=== PATIENT | female | born 1955 | race Caucasian/White ===

== ENCOUNTER 2017-05-01 08:48 | Outpatient (CLI) | payer MEDICARE, MEDICAID ==
--- NOTE | 2017-05-01 12:20 | CT ---
CT THORAX WITH IV CONTRAST: Date: 05/01/17 HISTORY: Small cell B cell lymphoma. Patient has CHF and liver cirrhosis. COMPARISON: None available. FINDINGS: There are postsurgical changes related to CABG. Vascular calcifications are seen in the coronary miladis major, as well as involving the thoracic aorta. Thoracic aorta is normal in caliber. There are no enlarged lymph nodes seen within the axillary, hilar, or mediastinal locations by CT siz e criteria. There are scattered increased interstitial densities seen scattered throughout the lungs bilaterally, which are most likely attributable to chronic interstitial lung changes. No discrete pulmonary nodul e, mass, or pleural effusion is identified. Upper abdomen demonstrates a mild nodular peripheral contour of the liver suggesting cirrhosis which correlates with patient's clinical history. Post cholecystectomy changes are noted. The liver is at t he upper limits of normal in size and AP dimensions measuring 13.0 cm. Vascular calcifications are seen in the abdominal aorta. Degenerative changes are noted in the spine. IMPRESSION: 1. Evidence of chronic interstitial lung changes. While superimposed acute process could not be excl uded, findings are most likely attributable to chronic changes. 2. No evidence of lymphadenopathy. 3. Vascular calcifications in the coronary arteries, as well as the thoracic and abdominal aorta. Po stsurgical changes related to CABG are noted. 4. Evidence of cirrhosis with spleen at the upper limits of normal in size. 5. Cholecystectomy. POS: [facility]
[2017-05-01] MEDS ORDERED: Iopamidol 370 76% 100 ML VIAL ONE (16:56)
== END 2017-05-01 08:49 | disposition home or self-care (01) ==
LOC: CT 08:48
PROVIDERS: ATTEND Internal Medicine Medical Oncology
DX: C83.02 Small cell B-cell lymphoma, intrathoracic lymph nodes (principal); J84.9 Interstitial pulmonary disease, unspecified; I25.10 Atherosclerotic heart disease of native coronary artery without angina pectoris; I70.0 Atherosclerosis of aorta; K74.60 Unspecified cirrhosis of liver; Z90.49 Acquired absence of other specified parts of digestive tract; Z95.1 Presence of aortocoronary bypass graft
CPT/HCPCS: 71260; 82565

== ENCOUNTER 2017-11-19 10:44 | Outpatient (CLI) | payer MEDICARE, MEDICAID | END 2017-11-19 10:45 | disposition home or self-care (01) | LOC: BICULT 10:44 | PROVIDERS: ATTEND Family Medicine | DX: K74.60 Unspecified cirrhosis of liver (principal); Z90.49 Acquired absence of other specified parts of digestive tract | CPT/HCPCS: 76705 ==

== ENCOUNTER 2018-05-08 20:35 | Emergency (ER) | payer MEDICARE, MEDICAID ==
[~2018-05-08 20:35] MED LIST: ISOVUE-370 76%-LOCM 1 ML ONE
[2018-05-08] MEDS ORDERED: Ondansetron PF 4 MG/2 ML Vial ONE (20:43)
[2018-05-08] MEDS ORDERED: Nitroglycerin 0.4 MG TAB 1 EACH ONE (21:00)
[2018-05-08] MEDS ORDERED: Aspirin Chewable 81 MG TAB ONE (21:00)
--- NOTE | 2018-05-08 21:10 | RAD ---
CHEST ONE VIEW 05/08/18 HISTORY: Chest pain. COMPARISON: Radiograph 07/01/17. FINDINGS: The heart size is enlarged. Mild pulmonary venous congestion. Early edema. No pneumothorax. IMPRESSION: Cardiomegaly and mild pulmonary edema. POS: [facility]
[2018-05-08 21:31] LABS: #Basophils 0.1 thou/uL (0.0-0.2); #Eosinphils 0.3 thou/uL (0.0-0.7); #Monocytes 0.6 thou/uL (0.11-0.59); #Neutrophils 4.9 thou/uL (1.40-6.50); %Basophils 0.9 % (0.0-1.0); %Eosinophils 2.7 % (0.0-10.0); %Lymphocytes 40.5 % (21.0-51.0); %Monocytes 5.8 % (0.0-10.0); %Neutrophils 50.1 % (42.0-75.0); Mean Corpuscular HGB CONC 33.1 g/dL (32.0-36.0); Mean Corpuscular Volume 90.6 fL (78.0-98.0); Mean Platelet Volume 7.6 fL (7.4-10.4); Platelet Count 227 thou/uL (130-400); RBC Distribution Width 12.7 % (11.5-14.5); Red Blood Cell (RBC) Count 5.01 mill/uL (4.20-5.40); White Blood Cell (WBC) Count 9.8 thou/uL (4.8-10.8)
[2018-05-08 21:38] LABS: ALT (SGPT) 14 U/L (8-55); AST (SGOT) 17 U/L (5-34); Albumin 4.6 g/dL (3.4-4.8); Alkaline Phosphatase 63 U/L (40-150); Anion Gap 14 mmol/L (10-20); BUN (Urea Nitrogen) 18 mg/dL (9.8-20.1); Bilirubin, Total 0.5 mg/dL (0.2-1.2); Calc. Creatinine Clearance 0 mL/min (70-130); Calcium 10.2 mg/dL (7.8-10.44); Carbon Dioxide 24 mmol/L (23-31); Chloride 95 mmol/L (98-107); Estimated GFR-MDRD 76; Globulin 3.8 g/dL (2.4-3.5); Glucose 99 mg/dL (80-115); Potassium 4.8 mmol/L (3.5-5.1); Protein, Total 8.4 g/dL (6.0-8.3); Sodium 128 mmol/L (136-145)
[2018-05-08] MEDS ORDERED: Famotidine/PF 20 mg/2ml Vial ONE (22:21)
[2018-05-08] MEDS ORDERED: diphenhydrAMINE 50 MG/ML VIAL ONE (22:21)
[2018-05-08] MEDS ORDERED: methylPREDNISolone Sod Succ/PF 125 MG/2 ML VIAL ONE (22:21)
--- NOTE | 2018-05-08 23:15 | CT ---
CT ANGIOGRAM CHEST WITH CONTRAST 05/08/18 HISTORY: Chest pain. COMPARISON: Radiograph same day. FINDINGS: CT angiogram chest performed after the intravenous administration of contrast. 3D rendering provided. No proximal segmental pulmonary arterial filling defect. Heart size is mildly enlarged. Reactive medi astinal lymph nodes. Mild pulmonary edema. No significant pleural effusion. Limited evaluation of the upper abdomen is unremarkable. No acute displaced rib fracture. Old left sixth and seventh rib fractures with nonunion. No thoracic spine compression fracture. IMPRESSION: Cardiomegaly with mild pulmonary edema. No proximal segmental pulmonary arterial filling defect. POS: [facility]
--- NOTE | 2018-05-08 23:28 | PDOC.FPRHP ---
- Allergies/Adverse Reactions Allergies Allergy/AdvReac Type Severity Reaction Status Date / Time butorphanol Allergy Verified 10/23/16 20:23 butorphanol tartrate Allergy Verified 10/23/16 20:23 [From Stadol] hydromorphone HCl Allergy Verified 10/23/16 20:23 [From Dilaudid] iodine Allergy Verified 10/23/16 20:23 meperidine Allergy Verified 10/23/16 20:23 meperidine HCl [From Demerol] Allergy Verified 10/23/16 20:23 metronidazole Allergy Verified 10/23/16 20:23 Penicillins Allergy Verified 10/23/16 20:23 promethazine HCl Allergy Verified 10/23/16 20:23 [From Phenergan] Tetracyclines Allergy Verified 10/23/16 20:23 thiopental Allergy Verified 10/23/16 20:23 - Home Medications Medication Instructions Recorded Confirmed Type Lorazepam [Ativan] 2 mg PO HS #30 tab 03/18/15 10/23/16 Rx Sertraline HCl [Zoloft] 200 mg PO HS 03/11/16 10/23/16 History Aspirin 325 mg PO DAILY tab 05/27/16 10/23/16 Rx Rosuvastatin [Crestor] 20 mg PO HS #1 tab 05/27/16 10/23/16 Rx Acetaminophen W/ Codeine 1 tab PO Q6H PRN #0 tab 06/06/16 10/23/16 Rx [Acetaminophen/Codeine #3] Carvedilol [Coreg] 12.5 mg PO BID 10/23/16 10/23/16 History Cholecalciferol (Vitamin D3) 800 units PO Q7DAYS 10/23/16 10/23/16 History [Vitamin D3] Cyclobenzaprine [Flexeril] 10 mg PO HS PRN 10/23/16 10/23/16 History Enalapril Maleate [Vasotec] 20 mg PO DAILY 10/23/16 10/24/16 History Gabapentin 300 mg PO DAILY 10/23/16 10/23/16 History glipiZIDE [Glucotrol XL] 5 mg PO QAM-WM 10/23/16 10/23/16 History metFORMIN HCl [Glucophage] 1,000 mg PO BID-WM 10/23/16 10/23/16 History - History PMHx: PSHx: FHx: Social: - Vital signs BP: [] HR: [] RR: [] Tmax: [] Pox: []% on [] Wt: [] FMR H&P: Results - Labs Result Diagrams: 05/08/18 20:45 05/08/18 20:45 Lab results: WBC 9.8 thou/uL (4.8-10.8) 05/08/18 20:45 Hgb 15.0 g/dL (12.0-16.0) 05/08/18 20:45 Hct 45.4 % (36.0-47.0) 05/08/18 20:45 MCV 90.6 fL (78.0-98.0) 05/08/18 20:45 Plt Count 227 thou/uL (130-400) 05/08/18 20:45 Neutrophils % 50.1 % (42.0-75.0) 05/08/18 20:45 Sodium 128 mmol/L (136-145) L 05/08/18 20:45 Potassium 4.8 mmol/L (3.5-5.1) 05/08/18 20:45 Chloride 95 mmol/L (98-107) L 05/08/18 20:45 Carbon Dioxide 24 mmol/L (23-31) 05/08/18 20:45 BUN 18 mg/dL (9.8-20.1) 05/08/18 20:45 Creatinine 0.77 mg/dL (0.6-1.1) 05/08/18 20:45 Glucose 99 mg/dL (80-115) 05/08/18 20:45 Calcium 10.2 mg/dL (7.8-10.44) 05/08/18 20:45 Total Bilirubin 0.5 mg/dL (0.2-1.2) 05/08/18 20:45 AST 17 U/L (5-34) 05/08/18 20:45 ALT 14 U/L (8-55) 05/08/18 20:45 Alkaline Phosphatase 63 U/L (40-150) 05/08/18 20:45 Serum Total Protein 8.4 g/dL (6.0-8.3) H 05/08/18 20:45 Albumin 4.6 g/dL (3.4-4.8) 05/08/18 20:45 FMR H&P: Upper Level - Plan Date/Time: 05/08/18 8670 I, [], have evaluated this patient and agree with findings/plan as outlined by materials intern resident. Pertinent changes/additions are listed here.
[2018-05-08] MEDS ORDERED: Lorazepam 1 MG TAB ONE (23:30)
[2018-05-08] MEDS ORDERED: Acetaminophen 500 MG TAB ONE (23:30)
[2018-05-08] MEDS ORDERED: Lidocaine Viscous Sol 2% 15 ml UD Cup ONE (23:30)
[2018-05-08] MEDS ORDERED: Mag-Al 1200 mg/1200 mg/30 ML UDCUP ONE (23:30)
== END 2018-05-08 23:53 | disposition left against medical advice (07) ==
LOC: ERS 20:35
DX: I11.0 Hypertensive heart disease with heart failure (principal); I50.9 Heart failure, unspecified; I25.10 Atherosclerotic heart disease of native coronary artery without angina pectoris; E11.9 Type 2 diabetes mellitus without complications; J44.9 Chronic obstructive pulmonary disease, unspecified; F41.9 Anxiety disorder, unspecified; F17.210 Nicotine dependence, cigarettes, uncomplicated; Z79.899 Other long term (current) drug therapy; Z79.84 Long term (current) use of oral hypoglycemic drugs; Z79.51 Long term (current) use of inhaled steroids; Z79.891 Long term (current) use of opiate analgesic
CPT/HCPCS: 71045; 71275; 80053; 84484; 85025; 85379; 93005; 96374; 96375; J1200; J2405; J2930; Q9966; S0028

== ENCOUNTER 2018-05-20 18:20 | Emergency (ER) | payer MEDICARE, MEDICAID ==
[2018-05-20 19:29] LABS: Bilirubin Negative (Negative); Blood, Urine Negative (Negative); Clarity Hazy (Clear); Glucose, Urine (Dipstick) 250 mg/dL (Negative); Leukocyte Negative (Negative); Nitrite Negative (Negative); Protein, Urine (Dipstick) 30 mg/dL (Neg-Trace); Specific Gravity, Urine 1.025 (1.005-1.030)
[2018-05-20 19:30] LABS: RBC/HPF None Seen HPF (0-3); WBC/HPF None Seen HPF (0-3)
[2018-05-20 19:31] LABS: Bacteria/HPF Rare-Few HPF (None Seen)
[2018-05-20 19:50] LABS: #Basophils 0.1 thou/uL (0.0-0.2); #Eosinphils 0.2 thou/uL (0.0-0.7); #Lymphocytes 2.5 thou/uL (1.20-3.40); #Monocytes 0.4 thou/uL (0.11-0.59); #Neutrophils 4.9 thou/uL (1.40-6.50); %Basophils 1.2 % (0.0-1.0); %Eosinophils 2.1 % (0.0-10.0); %Lymphocytes 30.8 % (21.0-51.0); %Monocytes 4.9 % (0.0-10.0); Hemoglobin 12.6 g/dL (12.0-16.0); Mean Corpuscular HGB CONC 34.8 g/dL (32.0-36.0); Mean Corpuscular Hemoglobin 30.7 pg (27.0-31.0); Mean Corpuscular Volume 88.2 fL (78.0-98.0); Mean Platelet Volume 7.4 fL (7.4-10.4); Platelet Count 151 thou/uL (130-400); RBC Distribution Width 12.7 % (11.5-14.5); Red Blood Cell (RBC) Count 4.12 mill/uL (4.20-5.40)
[2018-05-20 20:03] LABS: ALT (SGPT) 10 U/L (8-55); AST (SGOT) 13 U/L (5-34); Albumin 3.8 g/dL (3.4-4.8); Alkaline Phosphatase 47 U/L (40-150); Anion Gap 12 mmol/L (10-20); BUN (Urea Nitrogen) 11 mg/dL (9.8-20.1); Bilirubin, Total 0.4 mg/dL (0.2-1.2); Calc. Creatinine Clearance 0 mL/min (70-130); Calcium 9.4 mg/dL (7.8-10.44); Carbon Dioxide 25 mmol/L (23-31); Chloride 103 mmol/L (98-107); Estimated GFR-MDRD 82; Globulin 3.1 g/dL (2.4-3.5); Glucose 135 mg/dL (80-115); Potassium 4.6 mmol/L (3.5-5.1); Protein, Total 6.9 g/dL (6.0-8.3); Sodium 135 mmol/L (136-145)
== END 2018-05-20 20:46 | disposition home or self-care (01) ==
LOC: SCSER 18:20
DX: N39.0 Urinary tract infection, site not specified (principal); I25.10 Atherosclerotic heart disease of native coronary artery without angina pectoris; I11.0 Hypertensive heart disease with heart failure; E66.9 Obesity, unspecified; I50.9 Heart failure, unspecified; I25.2 Old myocardial infarction; E11.9 Type 2 diabetes mellitus without complications; J44.9 Chronic obstructive pulmonary disease, unspecified; B19.20 Unspecified viral hepatitis C without hepatic coma; F41.9 Anxiety disorder, unspecified; F32.9 Major depressive disorder, single episode, unspecified; F17.210 Nicotine dependence, cigarettes, uncomplicated; F43.10 Post-traumatic stress disorder, unspecified; Z79.899 Other long term (current) drug therapy; Z79.84 Long term (current) use of oral hypoglycemic drugs
CPT/HCPCS: 80053; 81003; 81015; 85025; 87086; 99284

== ENCOUNTER 2018-07-28 17:56 | Emergency (ER) | payer MEDICARE, MEDICAID ==
[2018-07-28] MEDS ORDERED: Morphine 4 MG/ML VIAL ONE (18:27)
[2018-07-28] MEDS ORDERED: Diazepam 5 MG TAB ONE (18:27)
== END 2018-07-28 18:50 | disposition home or self-care (01) ==
LOC: SCSER 17:56
DX: M54.5 Low back pain (principal); I25.10 Atherosclerotic heart disease of native coronary artery without angina pectoris; I11.0 Hypertensive heart disease with heart failure; I50.9 Heart failure, unspecified; I25.2 Old myocardial infarction; E66.9 Obesity, unspecified; J44.9 Chronic obstructive pulmonary disease, unspecified; E11.9 Type 2 diabetes mellitus without complications; B19.20 Unspecified viral hepatitis C without hepatic coma; F41.9 Anxiety disorder, unspecified; F32.9 Major depressive disorder, single episode, unspecified; F17.210 Nicotine dependence, cigarettes, uncomplicated; Z79.899 Other long term (current) drug therapy; Z79.84 Long term (current) use of oral hypoglycemic drugs
CPT/HCPCS: 96372; J2270

== ENCOUNTER 2018-09-02 13:57 | Emergency (ER) | payer MEDICARE, MEDICAID ==
[2018-09-02 14:44] LABS: Bilirubin Small (Negative); Blood, Urine Negative (Negative); Clarity CLOUDY (Clear); Glucose, Urine (Dipstick) Negative (Negative); Leukocyte Trace (Negative); Nitrite Negative (Negative); Protein, Urine (Dipstick) 30 mg/dL (Neg-Trace); Specific Gravity, Urine 1.017 (1.002-1.036); pH, Urine 5.5 (5.0-9.0)
[2018-09-02 14:46] LABS: Bacteria/HPF None Seen HPF (None Seen); Pathc Cast-AUWi Flag 2.31 (0-2.49); RBC/HPF 0-3 HPF (0-3)
[2018-09-02 14:58] LABS: Hyaline Casts/LPF 0-3 HYALINE CAST LPF (0-3 Hyaline)
== END 2018-09-02 15:24 | disposition left against medical advice (07) ==
LOC: ERS 13:57
DX: R10.32 Left lower quadrant pain (principal); I11.0 Hypertensive heart disease with heart failure; I50.9 Heart failure, unspecified; E11.9 Type 2 diabetes mellitus without complications; E66.9 Obesity, unspecified; J44.9 Chronic obstructive pulmonary disease, unspecified; F17.210 Nicotine dependence, cigarettes, uncomplicated; Z79.899 Other long term (current) drug therapy
CPT/HCPCS: 81003; 81015; 99283

== ENCOUNTER 2018-09-22 10:37 | Outpatient (CLI) | payer MEDICARE, MEDICAID ==
[2018-09-22] MEDS ORDERED: Iopamidol 370 76% 100 ML VIAL ONE (10:50)
[2018-09-22 12:28] LABS: Estimated GFR-MDRD - POC Greater than 90
--- NOTE | 2018-09-22 13:08 | CT ---
CT abdomen and pelvis with IV and oral contrast HISTORY: Lower abdomen pain. COMPARISON: 10/21/2016. FINDINGS: Mild atelectasis at the lung bases. Gallbladder is surgically absent. Cirrhotic appearance of the liver. Left renal artery stent. Calcification throughout the arterial structures. Degenerative changes lumbar spine. Urinary bladder decompressed. Postoperative scarring anterior abdominal wall. The irregular shaped slightly hyperdense lesion along the anterior margin of the midline anterior lower abdominal wall in an area of scarring again shows some irregular/ill-defined margins. On the axial images, it now measures 4.6 cm width by 3.2 cm depth, unchanged from the previous study. No free air or free fluid within the abdomen. IMPRESSION: Chronic-type findings are stable, including the area of suspected postoperative scarring at the deep subcutaneous tissues/anterior abdominal wall lower midline abdomen. No evidence of complication. Atherosclerosis. No evidence of intra-abdominal inflammation.
== END 2018-09-22 10:38 | disposition home or self-care (01) ==
LOC: CT 10:37
PROVIDERS: ATTEND Specialist
DX: R10.32 Left lower quadrant pain (principal); I70.90 Unspecified atherosclerosis; Z98.890 Other specified postprocedural states
CPT/HCPCS: 74177; 82565; Q9967

== ENCOUNTER 2018-10-26 15:24 | Outpatient (CLI) | payer MEDICARE, MEDICAID ==
--- NOTE | 2018-10-26 16:23 | MRI ---
EXAM: MRI lumbar spine without contrast HISTORY: Low back pain with left-sided sciatica COMPARISON: None TECHNIQUE: Multiple planar multisequence MR images were obtained of the lumbar spine without contrast . FINDINGS: The vertebral bodies demonstrate normal height and alignment without fracture or subluxation. General ized disc desiccation and loss of intervertebral disc space height is seen. The prevertebral and paraspinal soft tissues are unremarkable. No marrow signal abnormality is present. The conus medullaris terminates normally at T12/L1. T12/L1: A small disc osteophyte complex is seen. No posterior facet arthrosis. No central canal brionna nosis. No neural foraminal stenosis L1/2: A small disc osteophyte complex is seen. No posterior facet arthrosis. Mild central canal brionna nosis. No neural foraminal stenosis L2/3: A small to moderate disc osteophyte complex is seen. Mild bilateral posterior facet arthrosis. Mild central canal stenosis. Moderate left and mild right neural foraminal stenosis L3/4: A small disc osteophyte complex is seen. Mild bilateral posterior facet arthrosis. No central canal stenosis. Mild bilateral neural foraminal stenosis L4/5: No significant posterior bulge or protrusion. Moderate bilateral posterior facet arthrosis. N o central canal stenosis. Mild bilateral neural foraminal stenosis L5/S1: A small disc osteophyte complex is seen. Mild bilateral posterior facet arthrosis. No centra l canal stenosis. Mild bilateral neural foraminal stenosis IMPRESSION: Degenerative changes of the lumbar spine as above.
== END 2018-10-26 15:25 | disposition home or self-care (01) ==
LOC: BICMRI 15:24
PROVIDERS: ATTEND Nurse Practitioner Acute Care
DX: M54.42 Lumbago with sciatica, left side (principal); M47.816 Spondylosis without myelopathy or radiculopathy, lumbar region
CPT/HCPCS: 72148

== ENCOUNTER 2018-11-16 14:32 | Outpatient (CLI) | payer MEDICARE, MEDICAID ==
--- NOTE | 2018-11-16 14:47 | RAD ---
EXAM: Chest Two Views 11/16/2018 2:44 PM HISTORY: Dyspnea COMPARISON: CT of the thorax dated 05/08/2018 and a chest radiograph dated 05/08/2018 FINDINGS: Heart: Normal in size and contour. Pulmonary vessels: Normal. Costophrenic angles: Clear. Lungs: Chronic lung changes are stable. No pleural effusion or pneumothorax is evident. No confluent airspace opacities noted. Pneumothorax: None. Osseous structures:Stable midline sternotomy changes. Stable spondylosis of the thoracic spine. Additional findings: Surgical clips are again seen within the upper abdomen likely related to lisa cystectomy. IMPRESSION: Stable chronic lung changes. No definite acute abnormality.
== END 2018-11-16 14:33 | disposition home or self-care (01) ==
LOC: RAD 14:32
PROVIDERS: ATTEND Internal Medicine Critical Care Medicine
DX: R06.00 Dyspnea, unspecified (principal); R91.8 Other nonspecific abnormal finding of lung field
CPT/HCPCS: 71046

== ENCOUNTER 2019-05-02 13:50 | Outpatient (CLI) | payer MEDICARE, MEDICAID ==
--- NOTE | 2019-05-03 14:40 | MMO ---
Bilateral MAMMO Bilat Screen [facility]. CLINICAL HISTORY: Patient is 64 years old and is seen for screening. The patient has no family history of breast cancer. The patient has a history of lymphoma. The patient has a history of right Ultrasound Guided Core Biopsy in 2008 - benign and right Cyst Aspiration at age 48 - benign. VIEWS: The views performed were: bilateral craniocaudal with tomosynthesis and bilateral mediolateral oblique with tomosynthesis. FILMS COMPARED: The present examination has been compared to prior imaging studies performed at [facility] on 07/02/2010, 11/07/2011, 05/13/2013 and 10/18/2015. This study has been interpreted with the assistance of computer-aided detection. MAMMOGRAM FINDINGS: The breasts are almost entirely fat. There is a biopsy clip seen in the right breast. There are no suspicious masses, suspicious calcifications, or new areas of architectural distortion. IMPRESSION: THERE IS NO MAMMOGRAPHIC EVIDENCE OF MALIGNANCY. A ROUTINE FOLLOW-UP MAMMOGRAM IN 1 YEAR IS RECOMMENDED. THE RESULTS OF THIS EXAM WERE SENT TO THE PATIENT. ACR BI-RADS Category 2 - Benign finding MAMMOGRAPHY NOTE: 1. A negative mammogram report should not delay a biopsy if a dominant of clinically suspicious mass is present. 2. Approximately 10% to 15% of breast cancers are not detected by mammography. 3. Adenosis and dense breasts may obscure an underlying neoplasm. Reported by: PERRY KELLEY MD Electonically Signed: [id number]
== END 2019-05-02 13:51 | disposition home or self-care (01) ==
LOC: BICMAMMO 13:50
PROVIDERS: ATTEND Student in an Organized Health Care Education/Training Program
DX: Z12.31 Encounter for screening mammogram for malignant neoplasm of breast (principal); Z91.89 Other specified personal risk factors, not elsewhere classified; Z85.72 Personal history of non-Hodgkin lymphomas
CPT/HCPCS: 77063; 77067

== ENCOUNTER 2019-08-04 15:05 | Emergency (ER) | payer MEDICARE, MEDICAID ==
--- NOTE | 2019-08-04 16:15 | CT ---
BRAIN CT WITHOUT IV CONTRAST: 08/04/19 HISTORY: Headache, history of falls. COMPARISON: 10/23/16. FINDINGS: No focal mass or midline shift. No intra or extra-axial hemorrhage. Right maxillary sinus mucosal dis ease new from prior study. Prior bilateral sinonasal surgery. IMPRESSION: No significant acute intracranial process. No mass or bleed. Right maxillary sinus mucosal disease ne w from prior study. POS: [facility]
--- NOTE | 2019-08-04 16:20 | RAD ---
RADIOGRAPH CHEST 1 VIEW: DATE: 08/04/2019 TIME: 4:12 PM HISTORY: 64-year-old female with chest pain and fever COMPARISON: 11/16/2018 FINDINGS: Chronic interstitial densities in the bilateral mid and lower lung zones, and right upper lung zone. Left upper lung zone is relatively spared. Sternotomy wires. No cardiomegaly. No pneumothorax. Lateral costophrenic angles are sharp. No interval change compared to previous frontal view. IMPRESSION: 1. Chronic interstitial lung disease: Pulmonary fibrosis 2. Signs of previous open-heart surgery. 3. No acute findings.
--- NOTE | 2019-08-04 16:20 | RAD ---
RIGHT FOOT RADIOGRAPHS THREE VIEWS: 08/04/19 PROVIDED CLINICAL HISTORY: Fifth digit trauma. FINDINGS: Obliquely oriented nondisplaced fracture involves the fifth digit proximal phalanx. No additional fra cture is evident. Alignment appears anatomic. Joint spaces appear preserved. Plantar calcaneal enthe sophyte formation is noted. IMPRESSION: Nondisplaced fifth digit proximal phalangeal fracture. POS: [facility]
[2019-08-04 16:24] LABS: #Basophils 0.1 thou/uL (0.0-0.2); #Eosinphils 0.2 thou/uL (0.0-0.7); #Lymphocytes 2.5 thou/uL (1.20-3.40); #Monocytes 0.6 thou/uL (0.11-0.59); %Basophils 0.9 % (0.0-1.0); %Eosinophils 2.2 % (0.0-10.0); %Lymphocytes 29.5 % (21.0-51.0); %Monocytes 7.5 % (0.0-10.0); %Neutrophils 59.9 % (42.0-75.0); Hemoglobin 14.3 g/dL (12.0-16.0); Mean Corpuscular HGB CONC 33.2 g/dL (32.0-36.0); Mean Corpuscular Hemoglobin 30.2 pg (27.0-31.0); Platelet Count 155 thou/uL (130-400); RBC Distribution Width 14.2 % (11.5-14.5); Red Blood Cell (RBC) Count 4.72 mill/uL (4.20-5.40); White Blood Cell (WBC) Count 8.3 thou/uL (4.8-10.8)
[2019-08-04 16:50] LABS: ALT (SGPT) 9 U/L (8-55); AST (SGOT) 13 U/L (5-34); Albumin 3.9 g/dL (3.4-4.8); Alkaline Phosphatase 58 U/L (40-110); Anion Gap 13 mmol/L (10-20); BUN (Urea Nitrogen) 17 mg/dL (9.8-20.1); Bilirubin, Total 0.4 mg/dL (0.2-1.2); Calc. Creatinine Clearance 0 mL/min (70-130); Calcium 9.5 mg/dL (7.8-10.44); Carbon Dioxide 22 mmol/L (23-31); Chloride 107 mmol/L (98-107); Estimated GFR-MDRD 80; Glucose 129 mg/dL (80-115); Potassium 4.9 mmol/L (3.5-5.1); Protein, Total 6.9 g/dL (6.0-8.3); Sodium 137 mmol/L (136-145)
[2019-08-04] MEDS ORDERED: HYDROcodone/Acetaminophen 10/325 mg Tablet ONE (17:20)
[2019-08-04 19:27] LABS: CKMB 0.5 ng/mL (0-6.6)
[2019-08-05 11:10] LABS: SARS-CoV-2 MS2 Positive; SARS-CoV-2 N Gene Negative; SARS-CoV-2 S Gene Negative; SARS-CoV-2 orf1ab Negative
== END 2019-08-04 20:06 | disposition home or self-care (01) ==
LOC: ERS 15:05
DX: J32.9 Chronic sinusitis, unspecified (principal); I25.2 Old myocardial infarction; I11.0 Hypertensive heart disease with heart failure; I50.9 Heart failure, unspecified; E66.9 Obesity, unspecified; E11.9 Type 2 diabetes mellitus without complications; J44.9 Chronic obstructive pulmonary disease, unspecified; F41.0 Panic disorder [episodic paroxysmal anxiety]; F43.10 Post-traumatic stress disorder, unspecified; F17.210 Nicotine dependence, cigarettes, uncomplicated; I25.10 Atherosclerotic heart disease of native coronary artery without angina pectoris; Z79.84 Long term (current) use of oral hypoglycemic drugs; Z79.899 Other long term (current) drug therapy; Z79.891 Long term (current) use of opiate analgesic
CPT/HCPCS: 70450; 71045; 73630; 80053; 82553; 83880; 84484 ×2; 85025; 93005; 99284; U0003; 36415; 87635

== ENCOUNTER 2019-08-25 17:09 | Emergency (ER) | payer MEDICARE, MEDICAID ==
[2019-08-25 17:43] LABS: #Basophils 0.1 thou/uL (0.0-0.2); #Eosinphils 0.2 thou/uL (0.0-0.7); #Lymphocytes 2.6 thou/uL (1.20-3.40); #Monocytes 0.7 thou/uL (0.11-0.59); #Neutrophils 4.8 thou/uL (1.40-6.50); %Eosinophils 2.8 % (0.0-10.0); %Lymphocytes 31.1 % (21.0-51.0); %Monocytes 7.8 % (0.0-10.0); %Neutrophils 57.3 % (42.0-75.0); Hemoglobin 14.9 g/dL (12.0-16.0); Mean Corpuscular HGB CONC 33.2 g/dL (32.0-36.0); Mean Corpuscular Hemoglobin 29.5 pg (27.0-31.0); Mean Corpuscular Volume 88.7 fL (78.0-98.0); Mean Platelet Volume 7.6 fL (7.4-10.4); Platelet Count 202 thou/uL (130-400); RBC Distribution Width 13.9 % (11.5-14.5); Red Blood Cell (RBC) Count 5.07 mill/uL (4.20-5.40); White Blood Cell (WBC) Count 8.3 thou/uL (4.8-10.8)
[2019-08-25 18:07] LABS: ALT (SGPT) 7 U/L (8-55); AST (SGOT) 14 U/L (5-34); Albumin 4.1 g/dL (3.4-4.8); Alkaline Phosphatase 54 U/L (40-110); Anion Gap 11 mmol/L (10-20); BUN (Urea Nitrogen) 14 mg/dL (9.8-20.1); Bilirubin, Total 0.5 mg/dL (0.2-1.2); Calc. Creatinine Clearance 0 mL/min (70-130); Calcium 9.5 mg/dL (7.8-10.44); Carbon Dioxide 25 mmol/L (23-31); Chloride 104 mmol/L (98-107); Estimated GFR-MDRD 73; Globulin 3.5 g/dL (2.4-3.5); Glucose 122 mg/dL (80-115); Lipase 13 U/L (8-78); Potassium 4.6 mmol/L (3.5-5.1); Protein, Total 7.6 g/dL (6.0-8.3); Sodium 135 mmol/L (136-145)
[2019-08-25 18:28] LABS: CKMB 0.7 ng/mL (0-6.6)
--- NOTE | 2019-08-25 21:04 | RAD ---
SINGLE VIEW OF THE CHEST: 08/25/19 COMPARISON: 08/04/19 HISTORY: Atrial fibrillation, status post ablation. Chest pain. FINDINGS: Single view of the chest shows normal sized cardiomediastinal silhouette. The patient is status post sternotomy. Diffuse stable increased interstitial lung markings are present. There is no evidence of consolidation, mass or pleural effusions. IMPRESSION: No evidence of acute cardiopulmonary disease. POS: [facility]
== END 2019-08-25 18:27 | disposition left against medical advice (07) ==
LOC: ERS 17:09
DX: Z53.21 Procedure and treatment not carried out due to patient leaving prior to being seen by health care provider (principal)
CPT/HCPCS: 36415; 71045; 80053; 82553; 83690; 84484; 85025; 93005; 94760

== ENCOUNTER 2019-11-04 07:39 | Outpatient (CLI) | payer MEDICARE, MEDICAID ==
[2019-11-04 16:31] LABS: #Eosinphils 0.3 thou/uL (0.0-0.7); #Lymphocytes 2.3 thou/uL (1.20-3.40); #Monocytes 0.6 thou/uL (0.11-0.59); #Neutrophils 4.6 thou/uL (1.40-6.50); %Basophils 0.6 % (0.0-1.0); %Eosinophils 3.5 % (0.0-10.0); %Lymphocytes 29.7 % (21.0-51.0); %Monocytes 7.7 % (0.0-10.0); %Neutrophils 58.6 % (42.0-75.0); Hemoglobin 14.7 g/dL (12.0-16.0); Mean Corpuscular HGB CONC 34.1 g/dL (32.0-36.0); Mean Corpuscular Hemoglobin 31.1 pg (27.0-31.0); Mean Corpuscular Volume 91.4 fL (78.0-98.0); Mean Platelet Volume 8.3 fL (7.4-10.4); Platelet Count 172 thou/uL (130-400); RBC Distribution Width 12.5 % (11.5-14.5); Red Blood Cell (RBC) Count 4.71 mill/uL (4.20-5.40); White Blood Cell (WBC) Count 7.9 thou/uL (4.8-10.8)
[2019-11-04 17:28] LABS: ALT (SGPT) 9 U/L (8-55); AST (SGOT) 13 U/L (5-34); Albumin 3.9 g/dL (3.4-4.8); Alkaline Phosphatase 55 U/L (40-110); Anion Gap 14 mmol/L (10-20); BUN (Urea Nitrogen) 15 mg/dL (9.8-20.1); Bilirubin, Total 0.6 mg/dL (0.2-1.2); Calc. Creatinine Clearance 0 mL/min (70-130); Carbon Dioxide 23 mmol/L (23-31); Chloride 101 mmol/L (98-107); Estimated GFR-MDRD 74; Glucose 193 mg/dL (80-115); Potassium 4.7 mmol/L (3.5-5.1); Protein, Total 6.9 g/dL (6.0-8.3); Sodium 133 mmol/L (136-145)
[2019-11-05 14:02] LABS: SARS-CoV-2 MS2 Positive; SARS-CoV-2 N Gene Negative; SARS-CoV-2 S Gene Negative; SARS-CoV-2 by NAA Not Detected (NotDetected); SARS-CoV-2 orf1ab Negative
== END 2019-11-04 07:40 | disposition home or self-care (01) ==
LOC: LABBT 07:39
PROVIDERS: ATTEND Internal Medicine Cardiovascular Disease
DX: Z01.812 Encounter for preprocedural laboratory examination (principal); Z20.828 Contact with and (suspected) exposure to other viral communicable diseases; I25.10 Atherosclerotic heart disease of native coronary artery without angina pectoris
CPT/HCPCS: 80053; 85025; U0003; 87635

== ENCOUNTER 2019-11-09 06:15 | Day surgery (SDC) | payer MEDICARE, MEDICAID ==
[2019-11-04 10:20] VITALS: BMI 35.6
[2019-11-09] MEDS ORDERED: Fentanyl 100 MCG/2 ML VIAL ONE ×3 (07:36→09:40)
[2019-11-09] MEDS ORDERED: Midazolam HCl 2 mg/2 ml Vial ONE ×2 (07:36→08:09)
[2019-11-09] MEDS ORDERED: Ondansetron PF 4 MG/2 ML Vial ONE (07:38)
[2019-11-09] MEDS ORDERED: Metoprolol Tartrate 5 MG/5 ML VIAL ONE (07:45)
[2019-11-09] MEDS ORDERED: Nitroglycerin 4.9 GM Bottle ONE (07:56)
[2019-11-09] MEDS ORDERED: Nitroglycerin 100MG/250ML BOT 250 ML ONE (08:06)
[2019-11-09] MEDS ORDERED: Lidocaine 1% (PF) 30 ML VIAL ONE (08:07)
[2019-11-09] MEDS ORDERED: Iopamidol 370 76% 100 ML VIAL ONE (09:06)
[2019-11-09] MEDS ORDERED: predniSONE 20 MG TAB ONE (12:29)
[2019-11-09] MEDS ORDERED: cloNIDine 0.1 MG TAB ONE (13:54)
[2019-11-09] MEDS ORDERED: HYDROcodone/Acetaminophen 10/325 mg Tablet ONE (14:02)
--- NOTE | 2019-11-09 16:08 | ULT ---
Exam: Right groin ultrasound HISTORY: Patient underwent angiography today. Right groin bleeding pain and hematoma. COMPARISON: none TECHNIQUE: Grayscale, color flow, Doppler imaging and spectral waveform analysis of the right groin FINDINGS: Irregular hypoechoic focus without vascularity in the right groin 10.9 x 3.6 x 3.5 cm, comp atible with a hematoma. Right common femoral artery and right common femoral vein are patent. Appropriate vascular flow and w aveform. No evidence of a pseudoaneurysm. IMPRESSION: 1. Significant right groin hematoma limiting evaluation. No obvious pseudoaneurysm. 2. Results study discussed with Guillermina PACU nurse 11/09/2019 4:06 PM Code CR
--- NOTE | 2019-11-09 18:19 | DIS ---
DATE OF ADMISSION: 11/09/2019 DATE OF DISCHARGE: 11/09/2019 Ms. Lackey underwent cardiac catheterization today. It revealed that she is adequately vascularized. A 4-Jordanian catheter was used for the catheter. She complained a lot of pain with the catheterization. She said she actually has had multiple catheterizations and apparently multiple times vascular sealing devices "collagen plugs" have been used, which is probably the reason for some of the scar tissue ultrasound of her leg before she leaves to make sure the artery is okay. The patient will be discharged on the same medicines she came in on, awaited 3 days to resume the Xarelto. The patient is asking to go out and smoke even right now before the ultrasound of her leg. I think continued smoking. The medication will be continued unchanged. The patient has a patent internal mammary to LAD, patent vein graft to an occluded diagonal, patent vein graft to occluded right coronary. She is well vascularized. Ejection fraction was 55%. Mild apical hypokinesis. Job ID: [id number]
== END 2019-11-09 16:13 | disposition home or self-care (01) ==
LOC: CCL 06:15
PROVIDERS: ATTEND Internal Medicine Cardiovascular Disease
PROC: 4A023N7 Measurement of Cardiac Sampling and Pressure, Left Heart, Percutaneous Approach (ICD-10-PCS; principal; 2019-11-09)
PROC: B2111ZZ Fluoroscopy of Multiple Coronary Arteries using Low Osmolar Contrast (ICD-10-PCS; 2019-11-09)
PROC: B2181ZZ Fluoroscopy of Left Internal Mammary Bypass Graft using Low Osmolar Contrast (ICD-10-PCS; 2019-11-09)
PROC: B2121ZZ Fluoroscopy of Single Coronary Artery Bypass Graft using Low Osmolar Contrast (ICD-10-PCS; 2019-11-09)
DX: I25.119 Atherosclerotic heart disease of native coronary artery with unspecified angina pectoris (principal); I11.0 Hypertensive heart disease with heart failure; I50.22 Chronic systolic (congestive) heart failure; I48.3 Typical atrial flutter; I48.0 Paroxysmal atrial fibrillation; E11.42 Type 2 diabetes mellitus with diabetic polyneuropathy; J44.9 Chronic obstructive pulmonary disease, unspecified; I25.2 Old myocardial infarction; G40.909 Epilepsy, unspecified, not intractable, without status epilepticus; F17.210 Nicotine dependence, cigarettes, uncomplicated; F32.9 Major depressive disorder, single episode, unspecified; F41.9 Anxiety disorder, unspecified; M79.7 Fibromyalgia; G47.30 Sleep apnea, unspecified; S30.1XXA Contusion of abdominal wall, initial encounter; E66.9 Obesity, unspecified; Z68.35 Body mass index [BMI] 35.0-35.9, adult; Z79.01 Long term (current) use of anticoagulants; Z79.82 Long term (current) use of aspirin; Z79.84 Long term (current) use of oral hypoglycemic drugs; Z79.899 Other long term (current) drug therapy; Z88.0 Allergy status to penicillin; Z88.1 Allergy status to other antibiotic agents; Z88.5 Allergy status to narcotic agent; Z88.8 Allergy status to other drugs, medicaments and biological substances; Z91.041 Radiographic dye allergy status; Z95.1 Presence of aortocoronary bypass graft
CPT/HCPCS: 76936; 76942; 93459; 99152; 99153; J1644; J2001; J2250; J2405; J3010; J7512; Q9967

== ENCOUNTER 2020-01-20 13:50 | Outpatient (CLI) | payer MEDICARE, MEDICAID | END 2020-01-20 13:51 | disposition home or self-care (01) | LOC: CTENTCT 13:50 | PROVIDERS: ATTEND Specialist | DX: J32.9 Chronic sinusitis, unspecified (principal) | CPT/HCPCS: 70486 ==

== ENCOUNTER 2020-02-27 06:50 | Outpatient (CLI) | payer MEDICARE, MEDICAID ==
[2020-02-27 16:11] LABS: Hemoglobin 14.7 g/dL (12.0-16.0); Mean Corpuscular HGB CONC 33.9 G/DL (32.0-36.0); Mean Corpuscular Hemoglobin 30.1 PG (27.0-33.0); Mean Corpuscular Volume 88.9 fl (80.0-100.0); Mean Platelet Volume 10.6 fl (7.4-10.4); Platelet Count 177 10x3/uL (130-400); RBC Distribution Width 12.8 % (11.5-14.5); Red Blood Cell (RBC) Count 4.88 10x6/uL (3.90-5.20); White Blood Cell (WBC) Count 7.9 10x3/uL (4.5-11.0)
[2020-02-27 16:21] LABS: Anion Gap 17 mmol/L (10-20); BUN (Urea Nitrogen) 13 mg/dL (9.8-20.1); Calc. Creatinine Clearance 0 mL/min (70-130); Calcium 9.4 mg/dL (7.8-10.44); Carbon Dioxide 22 mmol/L (23-31); Chloride 102 mmol/L (98-107); Glucose 305 mg/dL (80-115); Sodium 136 mmol/L (136-145)
[2020-02-28 06:30] LABS: SARS-CoV-2 MS2 Positive; SARS-CoV-2 N Gene Negative; SARS-CoV-2 S Gene Negative; SARS-CoV-2 by NAA Not Detected (NotDetected); SARS-CoV-2 orf1ab Negative
== END 2020-02-27 06:51 | disposition home or self-care (01) ==
LOC: LABBT 06:50
PROVIDERS: ATTEND Specialist
DX: Z01.818 Encounter for other preprocedural examination (principal); Z20.828 Contact with and (suspected) exposure to other viral communicable diseases; J32.9 Chronic sinusitis, unspecified; J30.9 Allergic rhinitis, unspecified; R68.89 Other general symptoms and signs
CPT/HCPCS: 80048; 85027; 93005; U0003; 87635; 93010

== ENCOUNTER 2020-03-01 12:00 | Day surgery (SDC) | payer MEDICARE, MEDICAID ==
[2020-02-29 09:16] VITALS: BMI 34.9
[~2020-03-01 12:00] MED LIST changes: +Dexamethasone 20 MG/5 ML VIAL ONE; -ISOVUE-370 76%-LOCM 1 ML ONE; +Labetalol HCl 100 MG/20 ML VIAL ONE; +Lidocaine 1% PF 5 ML VIAL ONE; +Ondansetron PF 4 MG/2 ML Vial ONE; +PROPOFOL 200 MG/20 ML VIAL ONE; +Succinylcholine 200 MG/10 ml SYRINGE FS ONE
[2020-03-01] MEDS ORDERED: Fentanyl 100 MCG/2 ML VIAL ONE ×2 (12:14→14:50)
[2020-03-01] MEDS ORDERED: AFRIN NASAL MIST 15 ML BOT ONE ×2 (12:15→13:58)
[2020-03-01] MEDS ORDERED: EPINEPHrine 1 MG/ML AMP ONE (13:58)
[2020-03-01] MEDS ORDERED: Lidocaine 1% w/Epinephrine 1:100K 20 ML VIAL ONE (13:58)
--- NOTE | 2020-03-01 15:40 | OP ---
DATE OF PROCEDURE: PREOPERATIVE DIAGNOSES: Chronic sinusitis, postoperative adhesions, and hypertrophic inferior turbinates. POSTOPERATIVE DIAGNOSES: Chronic sinusitis, postoperative adhesions, and hypertrophic inferior turbinates. PROCEDURES PERFORMED: Bilateral nasal endoscopy with lysis of adhesions, right nasal endoscopy with maxillary antrostomy with removal of tissue, and bilateral nasal endoscopy with submucosal resection of inferior turbinates. FINDINGS: The patient had adhesions from previous surgery that were addressed with a straight biting forceps and a Press shaver. These were bilateral and mostly between the middle turbinate in the septum and the middle turbinate in the lateral nasal wall. One bleeding point was cauterized with the bipolar on the left side. We then encountered significant infectious debris in the right maxillary sinus. The patient had a very small natural opening, which was enlarged. We were then able to get cultures of the purulent material. We removed particulate and liquid debris from the right maxillary sinus. Specimens were sent for histologic evaluation and then finally the inferior turbinates both underwent infiltration of 1% lidocaine with 1:100,000 epinephrine and submucosal resection using inferior turbinate blade. At the completion of the procedure, the patient was awakened, extubated, and taken to recovery room in a stable condition. Job ID: [id number]
[2020-03-01] MEDS ORDERED: Hydrocodone-Acetamin 15 ML UDCUP ONE ×2 (15:42→15:44)
== END 2020-03-01 16:35 | disposition home or self-care (01) ==
LOC: SDC 12:00
PROVIDERS: ATTEND Specialist
PROC: 09TL8ZZ Resection of Nasal Turbinate, Via Natural or Artificial Opening Endoscopic (ICD-10-PCS; principal; 2020-03-01)
PROC: 09BQ8ZZ Excision of Right Maxillary Sinus, Via Natural or Artificial Opening Endoscopic (ICD-10-PCS; 2020-03-01)
DX: J32.9 Chronic sinusitis, unspecified (principal); J34.3 Hypertrophy of nasal turbinates; J34.89 Other specified disorders of nose and nasal sinuses; J30.9 Allergic rhinitis, unspecified; E11.9 Type 2 diabetes mellitus without complications; J44.9 Chronic obstructive pulmonary disease, unspecified; F17.210 Nicotine dependence, cigarettes, uncomplicated; Z79.01 Long term (current) use of anticoagulants; Z79.84 Long term (current) use of oral hypoglycemic drugs; Z79.899 Other long term (current) drug therapy; Z88.0 Allergy status to penicillin; Z88.1 Allergy status to other antibiotic agents; Z88.5 Allergy status to narcotic agent; Z88.8 Allergy status to other drugs, medicaments and biological substances; Z91.041 Radiographic dye allergy status; Z95.1 Presence of aortocoronary bypass graft; Z95.5 Presence of coronary angioplasty implant and graft
CPT/HCPCS: 87070; 87077; 87186; 87205; J0171; J1100; J2405; J2704; J3010

== ENCOUNTER 2020-04-22 17:33 | Inpatient (IN) | payer MEDICARE, MEDICAID ==
[2020-04-22 18:17] LABS: #Eosinphils 0.2 thou/uL (0.0-0.7); #Lymphocytes 2.2 thou/uL (1.20-3.40); #Monocytes 0.8 thou/uL (0.11-0.59); #Neutrophils 7.5 thou/uL (1.40-6.50); %Basophils 0.1 % (0.0-1.0); %Lymphocytes 20.3 % (21.0-51.0); %Monocytes 7.1 % (0.0-10.0); %Neutrophils 70.4 % (42.0-75.0); Hemoglobin 9.8 g/dL (12.0-16.0); Mean Corpuscular HGB CONC 34.7 g/dL (32.0-36.0); Mean Corpuscular Hemoglobin 31.2 pg (27.0-31.0); Mean Corpuscular Volume 89.9 fL (78.0-98.0); Mean Platelet Volume 7.9 fL (7.4-10.4); Platelet Count 152 thou/uL (130-400); RBC Distribution Width 12.5 % (11.5-14.5); Red Blood Cell (RBC) Count 3.14 mill/uL (4.20-5.40); White Blood Cell (WBC) Count 10.7 thou/uL (4.8-10.8)
[2020-04-22 18:37] LABS: ALT (SGPT) 11 U/L (8-55); AST (SGOT) 17 U/L (5-34); Albumin 3.6 g/dL (3.4-4.8); Alkaline Phosphatase 51 U/L (40-110); Anion Gap 14 mmol/L (10-20); BUN (Urea Nitrogen) 20 mg/dL (9.8-20.1); Bilirubin, Total 0.8 mg/dL (0.2-1.2); Calc. Creatinine Clearance 0 mL/min (70-130); Calcium 8.5 mg/dL (7.8-10.44); Carbon Dioxide 21 mmol/L (23-31); Chloride 106 mmol/L (98-107); Globulin 2.8 g/dL (2.4-3.5); Glucose 138 mg/dL (80-115); Potassium 5.3 mmol/L (3.5-5.1); Protein, Total 6.4 g/dL (5.8-8.1); Sodium 136 mmol/L (136-145)
--- NOTE | 2020-04-22 19:05 | RAD ---
PORTABLE CHEST ONE VIEW: Date: 04-22-2020 Time: 6:13 p.m. History: Acute renal insufficiency. Comparison: 08-25-2019 FINDINGS: There are changes of mediastinum. The heart size is normal. The lungs are expanded with diffuse promi nent interstitial markings which appear stable. No lobar consolidation, pneumothoraces, or pleural ef fusions are identified. IMPRESSION: As above. POS: [facility]
[2020-04-22] MEDS ORDERED: Pantoprazole 40 MG VIAL ONE (19:29)
[2020-04-22 19:54] LABS: CKMB 0.9 ng/mL (0-6.6)
--- NOTE | 2020-04-22 20:22 | CT ---
CT ABDOMEN NONCONTRAST CT PELVIS NONCONTRAST: (Urolithiasis protocol) DATE: 04/22/2020 HISTORY: 65-year-old female with abdominal pain, nausea, and vomiting and diarrhea COMPARISON: 09/22/2018 TECHNIQUE: IV injection of iodinated contrast media: None Oral contrast media: None FINDINGS: Other than for urolithiasis, the lack of IV and oral contrast limits the evaluation. At the proximal medial anterior thigh, within the superficial subcutaneous fat, there is a high densi ty mass measuring 8.5 x 4.5 cm in short axis. There is fat stranding representing edema extending out peripherally from this, superiorly into the r ight groin, and laterally and posteriorly around the right thigh musculature. The hematoma extends caudally at the right thigh, the rest of not included on these images. Nodular margins of liver, similar to previous CT. Spleen is at upper limits of normal in size with partial loss of hilar concavity. Left renal artery stent No renal, ureteral, or bladder calculus. No hydronephrosis. Clips in gallbladder fossa. Moderate degree of heterogeneously distributed chronic groundglass pulmonary densities in central and peripheral regions of bilateral lower lungs, similar to prior CTA. No pleural effusion, ascites, pneumoperitoneum, small bowel dilation, or colonic diverticulitis. Normal appendix. Within the limitations of a noncontrast CT, no gross abnormality identified involving kidneys, adrena ls, pancreas, or urinary bladder. Absent uterus. Again noted is the extensive postsurgical scarring at midline of lower abdominal wall, including foca l moderately hyperdense mass, perhaps representing keloid, unchanged. IMPRESSION: 1) large hematoma of right groin pain extending into right anteromedial thigh, incompletely imaged, p resumably from recent cardiac catheterization.. 2) no acute findings within abdominal cavity or pelvic cavity. 3.) No urolithiasis or obstructive uropathy. 4.) evidence for cirrhosis. 5.) borderline splenomegaly. 6) status post cholecystectomy and hysterectomy. 7) left renal arterial stent 8) moderate degree of chronic groundglass pulmonary lesions, unchanged since 09/22/2018.. 9) high degree of lower ventral abdominal wall postsurgical scarring
[2020-04-22 20:29] LABS: PTT 26.7 sec (22.9-36.1); Prothrombin Time 13.4 sec (12.0-14.7)
[2020-04-22] MEDS ORDERED: Octreotide Acetate 100 MCG/ML VIAL ONE (22:07)
[2020-04-22] MEDS ORDERED: Octreotide Acetate 1,250 MCG in Sodium Chloride 0.9% 250 ML 250 ML IVPB SCH (22:15)
[2020-04-22] MEDS ORDERED: Ondansetron PF 4 MG/2 ML Vial ONE (22:27)
--- NOTE | 2020-04-22 23:10 | PDOC.FPRHP ---
- History of Present Illness Chief Complaint: nausea, vomiting History of Present Illness: Pt is a 65 yo F with PMH of cirrhosis, COPD, Hep C, MDD, JENNIFER, DMII, CHF, HTN, Hep C, HLD, CAD s/p CABG, Afib who presents with dark stool and a one time episode of vomiting 2-3 days ago. She states it started after she had her car diac ablation for Afib on Thursday. She endorses associated nausea and abdominal beck. She has a history of GERD and states these symptoms have worsened. She has not been able to tolerate much PO. She also notes a very large bruise on her right thigh since her procedure. She states she last vomited and had diarrhea 2 days ago but has not had a BM since. She denies fever, chills, ARGUETA, SOB, CP, edema, recent illness or sick contacts. ED Course: protonix, octreotide, zofran 500mL IVF - Allergies/Adverse Reactions Allergies Allergy/AdvReac Type Severity Reaction Status Date / Time butorphanol Allergy Verified 06/05/19 16:31 butorphanol tartrate Allergy Verified 06/05/19 16:31 [From Stadol] cephalexin [From Keflex] Allergy Verified 02/29/20 09:18 doxylamine Allergy Verified 02/29/20 09:18 iodine Allergy Verified 06/05/19 16:31 meperidine Allergy Verified 06/05/19 16:31 meperidine HCl [From Demerol] Allergy Verified 06/05/19 16:31 metronidazole Allergy Verified 06/05/19 16:31 Penicillins Allergy Verified 06/05/19 16:31 promethazine HCl Allergy Verified 06/05/19 16:31 [From Phenergan] Tetracyclines Allergy Verified 06/05/19 16:31 thiopental Allergy Verified 06/05/19 16:31 - Home Medications Medication Instructions Recorded Confirmed Type Lorazepam [Ativan] 2 mg PO HS #30 tab 03/18/15 04/23/20 Rx Sertraline HCl [Zoloft] 200 mg PO HS 03/11/16 04/23/20 History Rosuvastatin [Crestor] 20 mg PO HS #1 tab 05/27/16 04/23/20 Rx Carvedilol [Coreg] 25 mg PO BID 10/23/16 04/23/20 History Cholecalciferol (Vitamin D3) 800 units PO Q7DAYS 10/23/16 04/23/20 History [Vitamin D3] Enalapril Maleate [Vasotec] 20 mg PO BID 10/23/16 04/23/20 History metFORMIN HCl [Glucophage] 1,000 mg PO QPM 10/23/16 04/23/20 History Budesonide-Formoterol [Symbicort 1 puff INH DAILY 11/04/19 04/23/20 History 160-4.5] Dulaglutide [Trulicity] 1.5 mg SC Q7D 11/04/19 04/23/20 History HYDROcodone/Acetaminophen 1 each PO PRN PRN 11/04/19 04/23/20 History [Hydrocodone-Acetamin 10-325 mg] Ipratropium/Albuterol Sulfate 1 puff INH QID-RT 11/04/19 04/23/20 History [Combivent Respimat Inhal [place]] Montelukast Sodium [Singulair] 10 mg PO QPM 11/04/19 04/23/20 History Rivaroxaban [Xarelto] 20 mg PO QPM 11/04/19 04/23/20 History predniSONE 20 mg PO PRN PRN 11/04/19 04/23/20 History cloNIDine [Catapres] 0.1 mg PO BID 11/09/19 04/23/20 History diphenhydrAMINE [Benadryl] 50 mg PO ASDIR 11/09/19 04/23/20 History - History PMHx: cirrhosis, COPD, Hep C, MDD, JENNIFER, DMII, CHF, HTN, Hep C, HLD, CAD s/p CABG, Afib PSHx: c section, hernia repair, I&D of abdominal abscess FHx: non contributory Social: past history of alcoholism in her 30s where she drank 1/5 of a handle of tequila a day, smokes 1/2-1 ppd since 14 years old, marijuana use - Review of Systems General: reports: fatigue. denies: fever/chills Eyes: denies: vision changes Respiratory: reports: shortness of breath (patient with COPD, states this is not new). denies: cough Cardiovascular: denies: chest pain, edema Gastrointestinal: reports: nausea, vomiting, abdominal pain, GI bleeding (dark vomit and stools) Genitourinary: reports: dysuria Skin: denies: rashes, lesions Musculoskeletal: denies: pain, tenderness Neurological: reports: weakness. denies: numbness, syncope - Vital signs BP: 164/85 HR: 80 RR: 18 Tmax: 98.5 Pox: 98% on RA Wt: 100.7 - Physical Exam Constitutional: NAD, awake, alert and oriented HEENT: normocephalic and atraumatic, EOMI, no scleral icterus, MMM Neck: supple, FROM Heart: RRR, normal S1/S2, pulses present, no edema Lungs: CTAB, no respiratory distress, no wheezing -Lungs: end expiratory wheezes b/l Abdomen: soft, bowel sounds present, no masses/distention -Abdomen: mild epigastric tenderness Musculoskeletal: normal structure, normal tone, ROM grossly normal Neurological: no focal deficit, CN II-XII intact Skin: no rash/lesions, good turgor -Skin: large bruise on right thigh and groin area Heme/Lymphatic: no unusual bruising or bleeding Psychiatric: normal mood and affect, good judgment and insight FMR H&P: Results - Labs Result Diagrams: 04/22/20 18:06 04/22/20 18:07 Lab results: WBC 10.7 thou/uL (4.8-10.8) 04/22/20 18:06 Hgb 9.8 g/dL (12.0-16.0) L 04/22/20 18:06 Hct 28.2 % (36.0-47.0) L 04/22/20 18:06 MCV 89.9 fL (78.0-98.0) 04/22/20 18:06 Plt Count 152 thou/uL (130-400) 04/22/20 18:06 Neutrophils % 70.4 % (42.0-75.0) 04/22/20 18:06 Sodium 136 mmol/L (136-145) 04/22/20 18:07 Potassium 5.3 mmol/L (3.5-5.1) H 04/22/20 18:07 Chloride 106 mmol/L (98-107) 04/22/20 18:07 Carbon Dioxide 21 mmol/L (23-31) L 04/22/20 18:07 BUN 20 mg/dL (9.8-20.1) 04/22/20 18:07 Creatinine 0.94 mg/dL (0.6-1.1) 04/22/20 18:07 Glucose 138 mg/dL (80-115) H 04/22/20 18:07 Calcium 8.5 mg/dL (7.8-10.44) 04/22/20 18:07 Total Bilirubin 0.8 mg/dL (0.2-1.2) 04/22/20 18:07 AST 17 U/L (5-34) 04/22/20 18:07 ALT 11 U/L (8-55) 04/22/20 18:07 Alkaline Phosphatase 51 U/L (40-110) 04/22/20 18:07 CK-MB (CK-2) 0.9 ng/mL (0-6.6) 04/22/20 18:07 Serum Total Protein 6.4 g/dL (5.8-8.1) 04/22/20 18:07 Albumin 3.6 g/dL (3.4-4.8) 04/22/20 18:07 - EKG Interpretation EKG: t wave inversions in leads I, aVL, V1. normal sinus rhythm FMR H&P: A/P - Plan #anemia, concern for GI bleed vs hematoma -c/o black stools and diarrhea -does have stable hematoma in right thigh/groin area from recent cardiac ablation procedure -Hgb 9.8 -FOBT pending -no obvious signs of bleeding at this time -monitor with AM H/H -patient on PPI and Octreotide in light of past history of cirrhosis #cirrhosis -aware, stable -patient established with Dr Eller, GI, but has not followed up in 5 years -history of Hep C and alcoholism #Hep C -aware, s/p treatment since 2017 #Afib s/p ablation 2/ -patient sees Dr Hayden cardiology and Dr Palm EP -large hematoma 2/ procedure, stable #Hyperkalemia -5.3 on admission, aware -continue to monitor with morning BMP -Duonebs for COPD will also help with this #elevated trop -denies CP, EKG with T wave inversions age indeterminate. will compare with prior EKG -trend trop #COPD -nicotine gum PRN -continue home meds -DuoNebs #MDD/JENNIFER -aware, continue home meds #DMII -aware, continue home meds -SSI #CHF -aware, last echo looks to have been in 2017 but unsure of results #HTN -aware, continue home meds #HLD -aware, continue home meds #CAD s/p CABG -aware, patient established with carli Hayden -continue home meds Dispo: admit to medical obs DVT Ppx: SCDs Diet: NPO Fluids: KVO Code: DNR PCP: ARIELA Ford Attending: Dimas MENDIETA H&P: Upper Level - Plan Date/Time: 04/22/20 9250 I, Aixa Bustillo, have evaluated this patient and agree with findings/plan as outlined by intern brand resident. Pertinent changes/additions are listed here. Ms. Lackey is a 65 yo F with cirrhosis who presented to the ER for N/V/D and episode of dark emesis two days ago. She was found to have a Hb of 9.8 in the ER, in February it was 14.7. Of note she is POD #2 for catheter ablation for Afib in [place]. Two days ago she had a one-time episode of dark emesis & dark stool with no further episodes. She will be admitted for UGIB in setting of cirrhosis. She has bruising & swelling at the right groin area at site of insertion. There is not active bleeding but CT showed stable hematoma so this drop could be due to blood loss. She is hemody namically stable and will be admitted for UGIB in setting of cirrhosis. We will keep her NPO, continue IV protonix & octreotide. She will need a GI consult in the AM for possible endoscopy. Pulse: 80, Resp: 18, Temp: 98.5 (Oral), Pain: 8, O2 sat: 98 on (Room Air) PE: Gen: NAD Resp: End expiratory wheezing but good air movement CV: RRR, no murmurs #Acute UGIB in setting of cirrhosis (hx of Hep C s/p treatment) -Hgb 9.8, unsure of baseline- repeat Hb with AM labs, collect FOBT. It seems as if patient may have had bleeding episode that has since resolved. I will continue IV protonix & octreotide empirically pending AM labs. If FOBT + will give abx ppx for ppx. NPO & consider GI consult in AM pending clinical course #Hyperkalemia: K 5.3. No peaked T waves. Will give duonebs. Repeat in AM. #Elevated troponin: S/P ablation for Afib two days ago. No chest pain. #DM2: Sliding scale to cover #COPD: Stable, home meds #HLD: Stable, home meds #HTN: Stable, home meds #Hx of CABG x3 #Depression/anxiety: Home meds #Hx of B cell lymphoma #Chronic hepatitis C s/p treatment-follows with Dr. Eller See intern brand note for rest of problems & plan Addendum - Attending - Attending Attestation Date/Time: 04/23/20 4891 I personally evaluated the patient and discussed the management with Dr. Trinidad/Keny. I agree with the History, Examination, Assessment and Plan documented above with any addition or exceptions noted below. seen on date of admission. patient presented for non-specific complaints including malaise, N/V, diarrhea, and a one time episode of black emesis that occurred at least 2 days episode. She had an ablation late last week in [place] with EP and experienced a large hematoma on her right leg that covers most of her right anterior thigh. Her vitals were stable. Admit for possible Upper GI bleed although her large hematomoa could have caused her drop in H&H. FOBT collected after I had seen her and is pending. If it is negative, she could possibly discharge in the morning.
[2020-04-23] MEDS ORDERED: HYDROcodone/Acetaminophen 10/325 mg Tablet PO PRN (00:04)
[2020-04-23 00:26] LABS: Critical Call Chem Troponin I RESULT DECREASING; Troponin I 0.503 ng/mL (< 0.028)
[2020-04-23] MEDS ORDERED: Dextrose 50% Abboject 50 ML SYRINGE SLOW IVP PRN (00:38)
[2020-04-23] MEDS ORDERED: Ondansetron PF 4 MG/2 ML Vial IVP PRN (00:38)
[2020-04-23] MEDS ORDERED: Dextrose 5% in Water 1,000 ML IV PRN (00:38)
[2020-04-23] MEDS ORDERED: HumaLOG 300 UNITS/3 ML VIAL SC PRN ×2 (00:38)
[2020-04-23] MEDS ORDERED: Lorazepam 1 MG TAB ONE (01:29)
[2020-04-23 03:20] VITALS: BMI 34.6
[2020-04-23] MEDS ORDERED: Mometasone 200 MCG/Formoterol 5 MCG 120 PUFF INHALER INH SCH (07:00)
[2020-04-23] MEDS ORDERED: Ipratropium/Albuterol Sulfate 4 GM AER IH SCH (07:00)
[2020-04-23 08:31] LABS: Hemoglobin 8.9 g/dL (12.0-16.0); Mean Corpuscular HGB CONC 33.8 g/dL (32.0-36.0); Mean Corpuscular Hemoglobin 30.5 pg (27.0-31.0); Mean Corpuscular Volume 90.2 fL (78.0-98.0); Mean Platelet Volume 8.4 fL (7.4-10.4); Platelet Count 130 thou/uL (130-400); RBC Distribution Width 12.6 % (11.5-14.5); Red Blood Cell (RBC) Count 2.92 mill/uL (4.20-5.40); White Blood Cell (WBC) Count 7.7 thou/uL (4.8-10.8)
[2020-04-23 08:50] VITALS: BP 155/83; TEMP 98
[2020-04-23 08:52] LABS: ALT (SGPT) 8 U/L (8-55); AST (SGOT) 13 U/L (5-34); Albumin 3.2 g/dL (3.4-4.8); Alkaline Phosphatase 45 U/L (40-110); Anion Gap 9 mmol/L (10-20); BUN (Urea Nitrogen) 15 mg/dL (9.8-20.1); Calc. Creatinine Clearance 108 mL/min (70-130); Calcium 8.3 mg/dL (7.8-10.44); Carbon Dioxide 23 mmol/L (23-31); Chloride 107 mmol/L (98-107); Globulin 2.9 g/dL (2.4-3.5); Glucose 147 mg/dL (80-115); Potassium 4.4 mmol/L (3.5-5.1); Protein, Total 6.1 g/dL (5.8-8.1); Sodium 135 mmol/L (136-145)
[2020-04-23] MEDS ORDERED: cloNIDine 0.1 MG TAB PO SCH (09:00)
[2020-04-23] MEDS ORDERED: Carvedilol 25 MG TAB PO SCH (09:00)
[2020-04-23] MEDS ORDERED: Lisinopril 20 MG TAB PO SCH (09:00)
[2020-04-23] MEDS ORDERED: Pantoprazole 40 MG VIAL IVP SCH (09:00)
[2020-04-23] MEDS ORDERED: Ipratropium/Albuterol Sulfate 4 GM AER IH PRN (09:54)
--- NOTE | 2020-04-23 11:02 | PDOC.FM ---
- Subjective Subjective: Patient feeling well this morning. State she feels a little nauseous but wants to eat. Had a large BM this morning that was light brown in color. No further episodes of vomiting. Denies any abdominal pain. Has some mild discomfort over hematoma site on right lower extremity. - Objective MAR Reviewed: Yes Vital Signs & Weight: Vital Signs (12 hours) Temp Pulse Resp BP BP Pulse Ox 04/23/20 08:00 98.0 F 69 18 155/83 H 94 L 04/23/20 06:00 99.2 F 80 18 156/83 H 97 04/23/20 02:54 99.2 F 76 19 156/83 H 97 Weight Weight 100.244 kg Result Diagrams: 04/23/20 07:25 04/23/20 07:25 Phys Exam - Physical Examination Constitutional: NAD HEENT: moist MMs Neck: supple, full ROM Respiratory: clear to auscultation bilateral Cardiovascular: RRR Gastrointestinal: soft, non-tender, no distention, positive bowel sounds Musculoskeletal: no edema, pulses present Neurological: normal sensation, moves all 4 limbs Psychiatric: normal affect, A&O x 3 Skin: no rash Dx/Plan (1) Anemia Code(s): D64.9 - ANEMIA, UNSPECIFIED Status: Acute Qualifiers: Anemia type: unspecified type Qualified Code(s): D64.9 - Anemia, u nspecified (2) Hyperkalemia Code(s): E87.5 - HYPERKALEMIA Status: Acute (3) Cirrhosis of liver Code(s): K74.60 - UNSPECIFIED CIRRHOSIS OF LIVER Status: Chronic Qualifiers: Hepatic cirrhosis type: alcoholic cirrhosis (4) Hepatitis C, chronic Code(s): B18.2 - CHRONIC VIRAL HEPATITIS C Status: Chronic Qualifiers: Hepatic coma status: without hepatic coma Qualified Code(s): B18.2 - Chronic viral hepatitis C - Plan Plan: Anemia, acute -initially concern for GI bleed vs hematoma, currently stable with hematoma most likely -c/o black stools and diarrhea -does have stable hematoma in right thigh/groin area from recent cardiac ablatio n procedure -Hgb 9.8 > 8.9 > will repeat H/H at 1300 -FOBT negative -no obvious signs of bleeding at this time -patient initially received PPI and Octreotide in light of past history of cirrhosis but d/c with no apparent signs of GI bleed Cirrhosis 2/2 Alcoholism and Hepatitis C -aware, stable -patient established with Dr Eller, GI, last had EGD in 2017 which showed gastri tis and last f/u in 2018 -history of Hep C and alcoholism Hepatitis C, chronic -aware, s/p treatment since 2017 Afib s/p ablation / -patient sees Dr Hayden cardiology and Dr Palm EP -large hematoma to RLE 2/2 procedure, stable Hyperkalemia -5.3 on admission, aware> trend down to 4.4 this morning -continue to monitor with morning BMP -Duonebs for COPD will also help with this Elevated trop -denies CP, EKG with T wave inversions age indeterminate similar to prior EKG -trend trop stable, likely elevated 2/2 ablation procedure on 04/18/20 COPD -nicotine gum PRN -continue home meds -DuoNebs MDD/JENNIFER -aware, continue home meds DMII -aware, continue home meds -SSI CHF -aware, last echo looks to have been in 2017 but unsure of results HTN -aware, continue home meds HLD -aware, continue home meds CAD s/p CABG -aware, patient established with [facility] cardiology -continue home meds DVT Ppx: SCDs Diet: NPO Fluids: KVO Code: DNR PCP: ARIELA Ford Dispo: Stable, admit to medical obs. Pending repeat H/H at 1300 today, if stable then will plan to d/c to home. Addendum - Attending - Attending Attestation Date/Time: 04/23/20 6465 I personally evaluated the patient and discussed the management with Dr. Chavez. I agree with the History, Examination, Assessment and Plan documented above with any addition or exceptions noted below. After seeing the patient today an discussing a car eplan she decided to leave A.
[2020-04-23 14:24] LABS: SARS-CoV-2 PCR by NAA Not Detected (NotDetected)
[2020-04-23] MEDS ORDERED: Lorazepam 1 MG TAB PO SCH (21:00)
[2020-04-23] MEDS ORDERED: metFORMIN 500 MG TAB PO SCH (21:00)
[2020-04-24] MEDS ORDERED: DULAGLUTIDE SC SCH (09:00)
--- NOTE | 2020-04-25 10:24 | DIS ---
DATE OF ADMISSION: 04/22/2020 DATE OF DISCHARGE: 04/23/2020 (The patient left AMA) RESIDENT: Susan Chavez DO ADMITTING ATTENDING: Edward Cochran MD DISCHARGE ATTENDING: Rickey Johnson MD CONSULTS: None. PROCEDURES: 1. Chest x-ray on April 22, 2020: No acute process. 2. Abdomen and pelvis CT on April 22, 2020: Large hematoma of right groin extending into right anterior medial thigh, presumably from recent cardiac catheterization. No acute findings within abdominal or pelvic cavity. Cirrhosis present. Borderline splenomegaly. Status post cholecystectomy and hysterectomy. Left renal arterial stent in place. Moderate degree of chronic ground-glass pulmonary lesions, unchanged from September 2018. High degree of lower ventral abdominal wall postsurgical scarring. PRIMARY DIAGNOSIS: Acute anemia, likely secondary to right thigh hematoma. SECONDARY DIAGNOSES: 1. Cirrhosis secondary to alcoholism and hepatitis C. 2. Chronic hepatitis C infection. 3. Atrial fibrillation, status post ablation on April 18, 2020. 4. Hyperkalemia. 5. Elevated troponin. 6. Chronic obstructive pulmonary disease. 7. Major depressive disorder. 8. Generalized anxiety disorder. 9. Type 2 diabetes mellitus. 10. Systolic congestive heart failure. 11. Hypertension. 12. Hyperlipidemia. 13. Coronary artery disease, status post coronary artery bypass graft. DISCHARGE MEDICATIONS: 1. Lorazepam 2 mg p.o. at bedtime. 2. Sertraline 200 mg p.o. at bedtime. 3. Rosuvastatin 20 mg p.o. at bedtime. 4. Carvedilol 25 mg p.o. b.i.d. 5. Enalapril 20 mg p.o. b.i.d. 6. Metformin 1000 mg p.o. at bedtime. 7. Vitamin D3 of 800 units p.o. every seven days. 8. Prednisone 20 mg p.o. p.r.n. 9. Xarelto 20 mg p.o. at bedtime. 10. Montelukast 10 mg p.o. at bedtime. 11. Combivent inhaler one puff inhaled q.i.d. 12. Symbicort one puff inhaled daily. 13. [place] 10/325 mg one tablet p.o. p.r.n. 14. Trulicity 1.5 mg subcu every seven days. 15. Clonidine 0.1 mg p.o. b.i.d. 16. Benadryl 50 mg p.o. p.r.n. 17. Omeprazole 20 mg p.o. daily. 18. Zofran 4 mg p.o. q.6 hours p.r.n. DISCONTINUED MEDICATIONS: None. HISTORY OF PRESENT ILLNESS/HOSPITAL COURSE: The patient is a 65-year-old female with past medical history of cirrhosis, COPD, CAD, and atrial fibrillation, who is status post ablation procedure on April 18, 2020, who presented to the emergency department on April 22 with dark stool and one episode of vomiting about three days prior. The patient endorsed nausea and abdominal pain. She also had some pain over a very large bruise on her right thigh, which was present since her ablation procedure four days prior. In the emergency department, the patient was given Protonix, octreotide, Zofran, and 500 mL normal saline IV fluid. She was admitted to observation on the medical unit for suspected GI bleed. The patient was found to have an acute anemia of hemoglobin 9.8, hematocrit 28.2. The patient's FOBT was negative. She had no further episodes of vomiting. She had passed solid formed stools that were light brown in color. GI bleed was then thought to be less likely of a source for anemia. Most likely source for the patient's acute anemia is the large hematoma on her right thigh, which is a result of her ablation procedure. The patient's hemoglobin was repeated the following day on April 23 and was stable at 8.9. The patient complained of some heartburn on this day and said she had a history of a stomach ulcer. The patient desired to leave against medical advice on the morning of April 23, 2020. She was sent some prescriptions for omeprazole and Zofran for symptomatic relief. She was encouraged to follow up with her PCP, Dr. Ford at [facility] prior to leaving. The remainder of the discharge instructions were unable to be given. DISPOSITION: Stable. DISCHARGE INSTRUCTIONS: 1. Location: Home, the patient leaving against medical advice. 2. Diet: Heart healthy. 3. Activity: As tolerated. 4. Followup: With Dr. Ford in 3 to 5 days for hospital followup. Job ID: [id number]
--- NOTE | 2020-04-25 11:24 | PQF ---
CLINICAL DOCUMENTATION CLARIFICATION FORM: Dear Dr. Chavez Date: 04/25/2020 Please exercise your independent, professional judgment in responding to the clarification form. Clinical indicators are provided on the bottom of this form for your review. Please check appropriate box(s): [ X ] Post-op anemia related to acute blood loss [ ] Acute blood loss anemia [ ] Acute Anemia not related to acute blood loss, due to (please specify): [ ] Other diagnosis [ ] Unable to determine For continuity of documentation, please document condition throughout progress notes and discharge summary. Thank You. CLINICAL INDICATORS - SIGNS / SYMPTOMS / LABS / RESULTS AND LOCATION IN EMR *ED 04/22: * Chronically ill Possible upper GI. Pt with hx of cirrhosis * New anemia compared to Dec though pt clearly has some likely blood loss from R thigh hematoma/ecchymosis. *LAB (EMR): Hemoglobin 04/22 9.8 04/23 8.9 *H&P 04/22 (Light): * Presents with dark stool and a one time episode of vomiting 2-3 days ago. * Cardiac ablation for Afib on Thursday. Associated nausea and abdominal pain. Not able to tolerate much PO. * Very large bruise on her right thigh since her procedure. * Anemia, concern for GI bleed vs hematoma * Not active bleeding but CT showed stable hematoma so this drop could be due to blood loss. *PN 04/23 (Scott): * FOBT negative * No apparent signs of GI bleed. *Discharge Summary 04/25 (Scott): Primary Diagnosis: Acute anemia, likely secondary to right thigh hematoma. RISK FACTORS / RESULTS AND LOCATION IN EMR *H&P 04/22 (Light): Chronically ill hx of cirrhosis R thigh hematoma . Recent ablation TREATMENTS / RESULTS AND LOCATION IN EMR *ED 04/22: Stared on octreatotide, protonix *H&P 04/22 (Light): FOBT pending monitor with AM H/H *Reports 04/22 (EMR): Abdomen/Pelvis CT *LAB (EMR): CBC 04/22, 04/23 Thank you, Lety CDS/Cloth Laminating Supervisor Signature: Lety Nicole RN, CDS Phone #: [phone] [email or web address] This is a permanent part of the Medical Record [facility]
== END 2020-04-23 11:53 | disposition left against medical advice (07) | DRG 812 ==
LOC: ERS 17:33 → ERHOLD 22:54 → T4-B 04-23 02:51
PROVIDERS: ADMIT Family Medicine; ATTEND Family Medicine
DX: D62 Acute posthemorrhagic anemia (principal); M96.841 Postprocedural hematoma of a musculoskeletal structure following other procedure; I50.22 Chronic systolic (congestive) heart failure; Z66 Do not resuscitate; Z20.822 Contact with and (suspected) exposure to COVID-19; K70.30 Alcoholic cirrhosis of liver without ascites; B19.20 Unspecified viral hepatitis C without hepatic coma; F10.20 Alcohol dependence, uncomplicated; B18.2 Chronic viral hepatitis C; I48.91 Unspecified atrial fibrillation; E87.5 Hyperkalemia; R77.8 Other specified abnormalities of plasma proteins; J44.9 Chronic obstructive pulmonary disease, unspecified; F32.9 Major depressive disorder, single episode, unspecified; F41.1 Generalized anxiety disorder; E11.9 Type 2 diabetes mellitus without complications; I11.0 Hypertensive heart disease with heart failure; E78.5 Hyperlipidemia, unspecified; Y83.8 Other surgical procedures as the cause of abnormal reaction of the patient, or of later complication, without mention of misadventure at the time of the procedure; G89.29 Other chronic pain; F17.210 Nicotine dependence, cigarettes, uncomplicated; I25.10 Atherosclerotic heart disease of native coronary artery without angina pectoris; Z95.1 Presence of aortocoronary bypass graft; Z87.11 Personal history of peptic ulcer disease; Z90.49 Acquired absence of other specified parts of digestive tract; Z79.899 Other long term (current) drug therapy; Z79.84 Long term (current) use of oral hypoglycemic drugs; Z79.52 Long term (current) use of systemic steroids; Z79.02 Long term (current) use of antithrombotics/antiplatelets
CPT/HCPCS: 36415; 71045; 74176; 80053; 82274; 82553; 83690; 84484; 85025; 85027; 85610; 85730; 86850; 86900; 86901; 87635; 93005; 96365; 96366; 96375; 96376; C9113; J2354; J2405; J7050; U0003; U0005

== ENCOUNTER 2020-05-09 16:14 | Outpatient (CLI) | payer MEDICARE, MEDICAID ==
[2020-05-09 18:19] LABS: Hemoglobin 12.6 g/dL (12.0-15.5); Mean Corpuscular HGB CONC 33.2 g/dL (32.0-36.0); Mean Corpuscular Hemoglobin 30.7 pg (27.0-33.0); Mean Corpuscular Volume 92.5 fl (81.6-98.3); Mean Platelet Volume 10.3 fl (7.4-10.4); Platelet Count 296 10x3/uL (150-450); RBC Distribution Width 14.5 % (11.5-14.5); Red Blood Cell (RBC) Count 4.11 10x6/uL (3.90-5.03); White Blood Cell (WBC) Count 8.8 10x3/uL (3.5-10.5)
[2020-05-09 18:32] LABS: PTT 25.9 sec (22.0-33.0); Prothrombin Time 10.6 sec (9.5-12.1)
[2020-05-09 18:35] LABS: ALT (SGPT) 9 U/L (8-55); Albumin 4.1 g/dL (3.4-4.8); Alkaline Phosphatase 56 U/L (40-110); Anion Gap 14 mmol/L (10-20); BUN (Urea Nitrogen) 24 mg/dL (9.8-20.1); Bilirubin, Direct 0.3 mg/dL (0.1-0.3); Bilirubin, Total 0.7 mg/dL (0.2-1.2); Calc. Creatinine Clearance 0 mL/min (70-130); Calcium 9.3 mg/dL (7.8-10.44); Carbon Dioxide 24 mmol/L (23-31); Chloride 102 mmol/L (98-107); Glucose 258 mg/dL (80-115); Potassium 5.4 mmol/L (3.5-5.1); Protein, Total 7.1 g/dL (5.8-8.1); Sodium 135 mmol/L (136-145)
[2020-05-09 19:37] LABS: AST (SGOT) 14 U/L (5-34)
[2020-05-10 05:53] LABS: SARS-CoV-2 PCR by NAA Not Detected (NotDetected)
== END 2020-05-09 16:15 | disposition home or self-care (01) ==
LOC: LABBT 16:14
PROVIDERS: ATTEND Thoracic Surgery (Cardiothoracic Vascular Surgery)
DX: Z01.812 Encounter for preprocedural laboratory examination (principal); Z20.822 Contact with and (suspected) exposure to COVID-19; M96.841 Postprocedural hematoma of a musculoskeletal structure following other procedure
CPT/HCPCS: 80048; 80076; 85027; 85610; 85730; U0003; U0005; 87635

== ENCOUNTER 2020-05-11 06:12 | Day surgery (SDC) | payer MEDICARE, MEDICAID ==
[2020-05-10 12:05] VITALS: BMI 35.2
[2020-05-11] MEDS ORDERED: Clindamycin/D5W 900 mg/50 ml Premix Bag ONE (06:46)
[2020-05-11] MEDS ORDERED: Fentanyl 100 MCG/2 ML VIAL ONE ×2 (06:47→08:04)
[2020-05-11] MEDS ORDERED: Ondansetron PF 4 MG/2 ML Vial ONE (07:05)
[2020-05-11] MEDS ORDERED: Albuterol Sulfate 2.5 mg/3 ml Neb ONE (07:11)
[2020-05-11] MEDS ORDERED: Ondansetron PF 4 MG/2 ML Vial IVP SCH (07:15)
[2020-05-11] MEDS ORDERED: Albuterol Sulfate 2.5 mg/3 ml Neb NEB SCH (07:15)
--- NOTE | 2020-05-11 08:14 | OP ---
DATE OF PROCEDURE: 05/11/2020 PREOPERATIVE DIAGNOSIS: Post cath hematoma of the right groin. POSTOPERATIVE DIAGNOSIS: Post cath hematoma of the right groin. PROCEDURE PERFORMED: I and D/evacuation of hematoma. ANESTHESIA: General endotracheal. ESTIMATED BLOOD LOSS: Minimal. FINDINGS: 500 mL of bloody fluid within the hematoma. DRAIN: 19-[place] Baljinder. DESCRIPTION OF PROCEDURE: After consent was obtained, the patient was brought to the operating room and placed in supine position on the operating table. Appropriate central line was placed and general endotracheal anesthesia was induced. The right thigh was prepped and draped in usual sterile fashion. Skin incision was made over the hematoma and dissection down into the hematoma was obtained with electrocautery. Fluid was evacuated. The thrombus that was remaining was debrided and evacuated. Hematoma was copiously irrigated until clear. There was no active bleeding. A 19-[place] drain was placed and placed on bulb suction. Wound was then closed in layers and Dermabond was applied to the skin. The patient was awakened and transferred to recovery room to go home later today. Job ID: [id number]
[2020-05-11] MEDS ORDERED: HYDROcodone/Acetaminophen 5/325 mg Tablet ONE (08:43)
[2020-05-11] MEDS ORDERED: Ketorolac Tromethamine 30 MG/ML VIAL ONE (10:12)
[2020-05-11] MEDS ORDERED: ePHEDrine 50 MG/ML VIAL ONE (10:12)
[2020-05-11] MEDS ORDERED: Dexamethasone 20 MG/5 ML VIAL ONE (10:12)
[2020-05-11] MEDS ORDERED: Lidocaine 1% PF 5 ML VIAL ONE (10:12)
[2020-05-11] MEDS ORDERED: PROPOFOL 200 MG/20 ML VIAL ONE (10:12)
== END 2020-05-11 09:30 | disposition home or self-care (01) ==
LOC: SDC 06:12
PROVIDERS: ATTEND Thoracic Surgery (Cardiothoracic Vascular Surgery)
PROC: 0J9C0ZZ Drainage of Pelvic Region Subcutaneous Tissue and Fascia, Open Approach (ICD-10-PCS; principal; 2020-05-11)
DX: I97.630 Postprocedural hematoma of a circulatory system organ or structure following a cardiac catheterization (principal); I25.10 Atherosclerotic heart disease of native coronary artery without angina pectoris; I10 Essential (primary) hypertension; E78.2 Mixed hyperlipidemia; F17.210 Nicotine dependence, cigarettes, uncomplicated; F15.10 Other stimulant abuse, uncomplicated; J44.9 Chronic obstructive pulmonary disease, unspecified; Z79.84 Long term (current) use of oral hypoglycemic drugs; Z79.899 Other long term (current) drug therapy; Z88.0 Allergy status to penicillin; Z88.1 Allergy status to other antibiotic agents; Z88.5 Allergy status to narcotic agent; Z88.8 Allergy status to other drugs, medicaments and biological substances
CPT/HCPCS: 87070; 87205; J1100; J1885; J2405; J2704; J3010; J3490; J7611

== ENCOUNTER 2020-05-30 16:09 | Emergency (ER) | payer MEDICARE, MEDICAID | END 2020-05-30 17:01 | disposition left against medical advice (07) | LOC: ERS 16:09 | DX: Z53.21 Procedure and treatment not carried out due to patient leaving prior to being seen by health care provider (principal) ==

== ENCOUNTER 2020-07-03 14:24 | Outpatient (CLI) | payer MEDICARE, MEDICAID ==
[~2020-07-03 14:24] MED LIST changes: -Dexamethasone 20 MG/5 ML VIAL ONE; -Labetalol HCl 100 MG/20 ML VIAL ONE; -Lidocaine 1% PF 5 ML VIAL ONE; +Magnevist 469MG/ML 20 ML VIAL ONE; -Ondansetron PF 4 MG/2 ML Vial ONE; -PROPOFOL 200 MG/20 ML VIAL ONE; -Succinylcholine 200 MG/10 ml SYRINGE FS ONE
== END 2020-07-03 14:25 | disposition home or self-care (01) ==
LOC: BICMRI 14:24
PROVIDERS: ATTEND Nurse Practitioner Acute Care
DX: M51.17 Intervertebral disc disorders with radiculopathy, lumbosacral region (principal); M51.16 Intervertebral disc disorders with radiculopathy, lumbar region; M48.061 Spinal stenosis, lumbar region without neurogenic claudication
CPT/HCPCS: 72158; 82565; A9579

== ENCOUNTER 2020-07-25 10:39 | Outpatient (CLI) | payer MEDICARE, MEDICAID ==
[~2020-07-25 10:39] MED LIST changes: +Iopamidol 370 76% 100 ML VIAL ONE; -Magnevist 469MG/ML 20 ML VIAL ONE
== END 2020-07-25 10:40 | disposition home or self-care (01) ==
LOC: CT 10:39
PROVIDERS: ATTEND Physician Assistant Medical
DX: K52.9 Noninfective gastroenteritis and colitis, unspecified (principal); K74.60 Unspecified cirrhosis of liver; R10.9 Unspecified abdominal pain; R11.0 Nausea; Z90.49 Acquired absence of other specified parts of digestive tract; Z90.710 Acquired absence of both cervix and uterus
CPT/HCPCS: 74177; 82565; Q9967

== ENCOUNTER 2021-01-29 13:24 | Emergency (ER) | payer MEDICARE, MEDICAID ==
[~2021-01-29 13:24] MED LIST changes: -Iopamidol 370 76% 100 ML VIAL ONE; +Iopamidol-370 76% 500 ML 1 ML ONE
[2021-01-29 14:04] LABS: #Basophils 0.1 thou/uL (0.0-0.2); #Eosinphils 0.2 thou/uL (0.0-0.7); #Lymphocytes 2.3 thou/uL (1.20-3.40); #Monocytes 0.7 thou/uL (0.11-0.59); %Basophils 0.6 % (0.0-1.0); %Eosinophils 2.2 % (0.0-10.0); %Lymphocytes 22.2 % (21.0-51.0); %Monocytes 6.5 % (0.0-10.0); %Neutrophils 68.6 % (42.0-75.0); Hemoglobin 15.5 g/dL (12.0-16.0); Mean Corpuscular HGB CONC 33.8 g/dL (32.0-36.0); Mean Corpuscular Hemoglobin 30.3 pg (27.0-31.0); Mean Corpuscular Volume 89.7 fL (78.0-98.0); Mean Platelet Volume 7.5 fL (7.4-10.4); Platelet Count 183 thou/uL (130-400); Red Blood Cell (RBC) Count 5.11 mill/uL (4.20-5.40); White Blood Cell (WBC) Count 10.2 thou/uL (4.8-10.8)
[2021-01-29 14:35] LABS: ALT (SGPT) 9 U/L (8-55); AST (SGOT) 17 U/L (5-34); Albumin 3.8 g/dL (3.4-4.8); Alkaline Phosphatase 69 U/L (40-110); Anion Gap 14 mmol/L (10-20); BUN (Urea Nitrogen) 9 mg/dL (9.8-20.1); Bilirubin, Total 0.7 mg/dL (0.2-1.2); Calc. Creatinine Clearance 0 mL/min (70-130); Calcium 9.3 mg/dL (7.8-10.44); Carbon Dioxide 22 mmol/L (23-31); Chloride 101 mmol/L (98-107); Globulin 3.1 g/dL (2.4-3.5); Glucose 208 mg/dL (80-115); Lipase 14 U/L (8-78); Potassium 4.6 mmol/L (3.5-5.1); Protein, Total 6.9 g/dL (5.8-8.1); Sodium 132 mmol/L (136-145)
[2021-01-29 15:47] LABS: Magnesium 1.5 mg/dL (1.6-2.6)
[2021-01-29] MEDS ORDERED: Magnesium Oxide 400 MG TAB PO SCH (17:00)
[2021-01-29] MEDS ORDERED: methylPREDNISolone Sod Succ 40 MG VIAL ONE (17:56)
[2021-01-29] MEDS ORDERED: diphenhydrAMINE 50 MG/ML VIAL ONE (17:56)
[2021-01-29] MEDS ORDERED: Nicotine 14 MG PATCH ONE (17:56)
[2021-01-29] MEDS ORDERED: Famotidine/PF 20 mg/2ml Vial ONE (17:56)
[2021-01-29 18:54] LABS: SARS-CoV-2 NAA Rapid Test Not Detected (NotDetected)
== END 2021-01-29 21:05 | disposition home or self-care (01) ==
LOC: ERS 13:24
DX: J06.9 Acute upper respiratory infection, unspecified (principal); R06.00 Dyspnea, unspecified; Z20.822 Contact with and (suspected) exposure to COVID-19; J44.9 Chronic obstructive pulmonary disease, unspecified; I25.10 Atherosclerotic heart disease of native coronary artery without angina pectoris; I11.0 Hypertensive heart disease with heart failure; I50.9 Heart failure, unspecified; K74.60 Unspecified cirrhosis of liver; I48.91 Unspecified atrial fibrillation; F17.210 Nicotine dependence, cigarettes, uncomplicated; E11.40 Type 2 diabetes mellitus with diabetic neuropathy, unspecified; M48.00 Spinal stenosis, site unspecified; Z79.899 Other long term (current) drug therapy
CPT/HCPCS: 71045; 71275; 80053; 83690; 83735; 83880; 84484; 85025; 85379; 93005; U0002; 36415; 96374; 96375; J1200; J2920; Q9967; S0028

== ENCOUNTER 2021-07-11 11:46 | Outpatient (CLI) | payer MEDICARE, MEDICAID | END 2021-07-11 11:47 | disposition home or self-care (01) | LOC: RAD 11:46 | PROVIDERS: ATTEND Internal Medicine Critical Care Medicine | DX: R06.00 Dyspnea, unspecified (principal); J98.4 Other disorders of lung; J84.10 Pulmonary fibrosis, unspecified | CPT/HCPCS: 71046 ==

== ENCOUNTER 2021-07-15 12:47 | Outpatient (CLI) | payer MEDICARE, MEDICAID | END 2021-07-15 12:48 | disposition home or self-care (01) | LOC: ULT 12:47 | PROVIDERS: ATTEND Physician Assistant Medical | DX: E11.9 Type 2 diabetes mellitus without complications (principal); K59.00 Constipation, unspecified; K74.60 Unspecified cirrhosis of liver | CPT/HCPCS: 76705 ==

== ENCOUNTER 2021-08-28 13:30 | Outpatient (CLI) | payer MEDICARE, MEDICAID | END 2021-08-28 13:31 | disposition home or self-care (01) | LOC: BICMAMMO 13:30 | PROVIDERS: ATTEND Family Medicine | DX: N64.52 Nipple discharge (principal); Z12.2 Encounter for screening for malignant neoplasm of respiratory organs; F17.210 Nicotine dependence, cigarettes, uncomplicated | CPT/HCPCS: 71271; 76642; 77066; G0279 ==

== ENCOUNTER 2021-11-25 19:26 | Emergency (ER) | payer MEDICARE, MEDICAID ==
[2021-11-25] MEDS ORDERED: Ketorolac Tromethamine 30 MG/ML VIAL ONE (20:07)
[2021-11-25 20:24] LABS: #Basophils 0.1 thou/uL (0.0-0.2); #Eosinphils 0.2 thou/uL (0.0-0.7); #Lymphocytes 2.1 thou/uL (1.20-3.40); #Monocytes 0.9 thou/uL (0.11-0.59); #Neutrophils 9.3 thou/uL (1.40-6.50); %Basophils 0.4 % (0.0-1.0); %Eosinophils 1.3 % (0.0-10.0); %Monocytes 6.9 % (0.0-10.0); %Neutrophils 74.3 % (42.0-75.0); Hemoglobin 14.5 g/dL (12.0-16.0); Mean Corpuscular HGB CONC 34.3 g/dL (32.0-36.0); Mean Corpuscular Hemoglobin 31.5 pg (27.0-31.0); Mean Corpuscular Volume 91.8 fL (78.0-98.0); Mean Platelet Volume 7.9 fL (7.4-10.4); Platelet Count 199 thou/uL (130-400); RBC Distribution Width 12.4 % (11.5-14.5); White Blood Cell (WBC) Count 12.5 thou/uL (4.8-10.8)
[2021-11-25 21:06] LABS: ALT (SGPT) 11 U/L (8-55); AST (SGOT) 14 U/L (5-34); Albumin 3.8 g/dL (3.4-4.8); Alkaline Phosphatase 62 U/L (40-110); Anion Gap 14 mmol/L (10-20); BUN (Urea Nitrogen) 21 mg/dL (9.8-20.1); Bilirubin, Total 0.6 mg/dL (0.2-1.2); Calc. Creatinine Clearance 0 mL/min (70-130); Calcium 9.6 mg/dL (7.8-10.44); Carbon Dioxide 23 mmol/L (23-31); Chloride 100 mmol/L (98-107); Estimated GFR 57; Globulin 3.7 g/dL (2.4-3.5); Glucose 180 mg/dL (80-115); Potassium 4.1 mmol/L (3.5-5.1); Protein, Total 7.5 g/dL (5.8-8.1); Sodium 133 mmol/L (136-145)
[2021-11-25 21:54] LABS: Bilirubin Negative (Negative); Blood, Urine Negative (Negative); Clarity Clear (Clear); Glucose, Urine (Dipstick) Normal (Negative); Ketone, Urine Negative (Negative); Leukocyte Negative Leu/uL (Negative); Nitrite Negative (Negative); Protein, Urine (Dipstick) Negative (Neg-Trace); Specific Gravity, Urine 1.011 (1.002-1.036); Urobilinogen Normal mg/dL (Less than 2)
== END 2021-11-25 22:34 | disposition home or self-care (01) ==
LOC: ERS 19:26
DX: M54.50 Low back pain, unspecified (principal); I25.10 Atherosclerotic heart disease of native coronary artery without angina pectoris; I11.0 Hypertensive heart disease with heart failure; I50.9 Heart failure, unspecified; E11.9 Type 2 diabetes mellitus without complications; J44.9 Chronic obstructive pulmonary disease, unspecified; I48.91 Unspecified atrial fibrillation; F17.210 Nicotine dependence, cigarettes, uncomplicated
CPT/HCPCS: 36415; 71045; 74176; 80053; 81003; 85025; 96372; J1885

== ENCOUNTER 2021-12-30 09:56 | Emergency (ER) | payer MEDICARE, MEDICAID ==
[2021-12-30 10:36] LABS: #Basophils 0.1 thou/uL (0.0-0.2); #Eosinphils 0.2 thou/uL (0.0-0.7); #Lymphocytes 3.1 thou/uL (1.20-3.40); #Monocytes 1.3 thou/uL (0.11-0.59); #Neutrophils 12.3 thou/uL (1.40-6.50); %Basophils 0.6 % (0.0-1.0); %Eosinophils 1.4 % (0.0-10.0); %Monocytes 7.9 % (0.0-10.0); %Neutrophils 72.2 % (42.0-75.0); Hemoglobin 14.6 g/dL (12.0-16.0); Mean Corpuscular HGB CONC 32.8 g/dL (32.0-36.0); Mean Corpuscular Hemoglobin 30.3 pg (27.0-31.0); Mean Corpuscular Volume 92.4 fL (78.0-98.0); Mean Platelet Volume 7.9 fL (7.4-10.4); Platelet Count 216 thou/uL (130-400); Red Blood Cell (RBC) Count 4.83 mill/uL (4.20-5.40)
[2021-12-30 10:48] LABS: ALT (SGPT) 9 U/L (8-55); AST (SGOT) 10 U/L (5-34); Albumin 3.7 g/dL (3.4-4.8); Alkaline Phosphatase 62 U/L (40-110); Anion Gap 14 mmol/L (10-20); BUN (Urea Nitrogen) 19 mg/dL (9.8-20.1); Bilirubin, Total 1.1 mg/dL (0.2-1.2); Calc. Creatinine Clearance 0 mL/min (70-130); Calcium 9.9 mg/dL (7.8-10.44); Carbon Dioxide 21 mmol/L (23-31); Chloride 99 mmol/L (98-107); Estimated GFR 62; Globulin 3.7 g/dL (2.4-3.5); Glucose 229 mg/dL (80-115); Potassium 4.8 mmol/L (3.5-5.1); Protein, Total 7.4 g/dL (5.8-8.1); Sodium 129 mmol/L (136-145)
[2021-12-30] MEDS ORDERED: Acetaminophen 500 MG TAB ONE (11:10)
[2021-12-30] MEDS ORDERED: Ondansetron PF 4 MG/2 ML Vial ONE (11:10)
[2021-12-30] MEDS ORDERED: Haloperidol Lactate 5 MG/ML VIAL ONE (12:12)
[2021-12-30] MEDS ORDERED: diphenhydrAMINE 50 MG/ML VIAL ONE (12:12)
[2021-12-30] MEDS ORDERED: methylPREDNISolone Sod Succ/PF 125 MG/2 ML VIAL ONE (12:37)
[2021-12-30] MEDS ORDERED: Famotidine/PF 20 mg/2ml Vial ONE (12:37)
[2021-12-30] MEDS ORDERED: methylPREDNISolone Sod Succ 40 MG VIAL ONE (12:42)
[2021-12-30] MEDS ORDERED: Iopamidol-370 76% 500 ML 1 ML ONE (14:34)
[2021-12-31] MEDS ORDERED: Enoxaparin Sodium 40 MG/0.4 ML SYRINGE SC SCH (09:00)
== END 2021-12-30 15:34 | disposition home or self-care (01) ==
LOC: ERS 09:56
DX: R07.9 Chest pain, unspecified (principal); E87.1 Hypo-osmolality and hyponatremia; R06.02 Shortness of breath; Z79.899 Other long term (current) drug therapy; Z79.52 Long term (current) use of systemic steroids; I25.10 Atherosclerotic heart disease of native coronary artery without angina pectoris; I50.9 Heart failure, unspecified; E11.9 Type 2 diabetes mellitus without complications; I10 Essential (primary) hypertension; J44.9 Chronic obstructive pulmonary disease, unspecified; I48.91 Unspecified atrial fibrillation; Z87.891 Personal history of nicotine dependence; Z20.822 Contact with and (suspected) exposure to COVID-19
CPT/HCPCS: 36415; 71045; 71275; 74177; 80053; 83605; 83880; 84484; 85025; 85379; 87040; 93005; 96374; 96375; J1200; J1630; J2405; J2920; J2930; Q9967; S0028

== ENCOUNTER 2022-06-18 09:17 | Outpatient (CLI) | payer MEDICARE, MEDICAID | END 2022-06-18 09:18 | disposition home or self-care (01) | LOC: RAD 09:17 | PROVIDERS: ATTEND Internal Medicine Critical Care Medicine | DX: R06.00 Dyspnea, unspecified (principal); R91.8 Other nonspecific abnormal finding of lung field | CPT/HCPCS: 71046 ==

== ENCOUNTER 2022-07-07 10:46 | Outpatient (CLI) | payer MEDICARE, MEDICAID | END 2022-07-07 10:47 | disposition home or self-care (01) | LOC: BICULT 10:46 | PROVIDERS: ATTEND Physician Assistant Medical | DX: K74.60 Unspecified cirrhosis of liver (principal); K72.90 Hepatic failure, unspecified without coma; E11.9 Type 2 diabetes mellitus without complications | CPT/HCPCS: 76705 ==

== ENCOUNTER 2022-12-17 15:18 | Outpatient (CLI) | payer MEDICARE, MEDICAID | END 2022-12-17 15:19 | disposition home or self-care (01) | LOC: RAD 15:18 | PROVIDERS: ATTEND Internal Medicine Critical Care Medicine | DX: R06.00 Dyspnea, unspecified (principal); J84.10 Pulmonary fibrosis, unspecified | CPT/HCPCS: 71046 ==

== ENCOUNTER 2022-12-22 13:39 | Emergency (ER) | payer OTHER, MEDICARE, MEDICAID ==
[2022-12-22] MEDS ORDERED: HYDROcodone/Acetaminophen 5/325 mg Tablet ONE (15:23)
== END 2022-12-22 15:34 | disposition home or self-care (01) ==
LOC: ERS 13:39
DX: S09.90XA Unspecified injury of head, initial encounter (principal); S00.03XA Contusion of scalp, initial encounter; S90.31XA Contusion of right foot, initial encounter; S70.01XA Contusion of right hip, initial encounter; S80.211A Abrasion, right knee, initial encounter; I11.0 Hypertensive heart disease with heart failure; I50.9 Heart failure, unspecified; E11.40 Type 2 diabetes mellitus with diabetic neuropathy, unspecified; I25.10 Atherosclerotic heart disease of native coronary artery without angina pectoris; I48.91 Unspecified atrial fibrillation; J44.9 Chronic obstructive pulmonary disease, unspecified; F17.210 Nicotine dependence, cigarettes, uncomplicated; W18.30XA Fall on same level, unspecified, initial encounter; Y93.89 Activity, other specified; Y92.239 Unspecified place in hospital as the place of occurrence of the external cause
CPT/HCPCS: 70450; 93005

== ENCOUNTER 2023-08-12 10:51 | Outpatient (CLI) | payer MEDICARE, MEDICAID | END 2023-08-12 10:52 | disposition home or self-care (01) | LOC: BICCT 10:51 | PROVIDERS: ATTEND Internal Medicine Critical Care Medicine | DX: R91.8 Other nonspecific abnormal finding of lung field (principal); J18.1 Lobar pneumonia, unspecified organism; R59.0 Localized enlarged lymph nodes | CPT/HCPCS: 71260; 82565 ==

== ENCOUNTER 2023-08-12 20:47 | Emergency (ER) | payer MEDICARE, MEDICAID ==
[2023-08-12 22:23] LABS: #Basophils 0.05 10x3/uL (0.0-0.2); %Basophils 0.5 % (0.0-1.0); %Eosinophils 0.9 % (0.0-10.0); %Lymphocytes 12.8 % (21.0-51.0); %Monocytes 7.2 % (0.0-10.0); %Neutrophils 78.2 % (42.0-75.0); Hematocrit 41.3 % (36.0-47.0); Hemoglobin 14.1 g/dL (12.0-16.0); Mean Corpuscular HGB CONC 34.1 g/dL (32.0-36.0); Mean Corpuscular Hemoglobin 30.9 pg (27.0-31.0); Mean Corpuscular Volume 90.6 fL (78.0-98.0); Mean Platelet Volume 10.3 fL (7.4-10.4); Platelet Count 182 10x3/uL (130-400); RBC Distribution Width 13.7 % (11.5-14.5); Red Blood Cell (RBC) Count 4.56 mill/uL (4.20-5.40)
[2023-08-12 22:36] LABS: ALT (SGPT) 9 U/L (8-55); AST (SGOT) 14 U/L (5-34); Albumin 3.7 g/dL (3.4-4.8); Alkaline Phosphatase 51 U/L (40-110); Anion Gap 13 mmol/L (10-20); BUN (Urea Nitrogen) 14 mg/dL (9.8-20.1); Bilirubin, Total 0.5 mg/dL (0.2-1.2); Calc. Creatinine Clearance 0 mL/min (70-130); Calcium 9.5 mg/dL (7.8-10.44); Carbon Dioxide 26 mmol/L (23-31); Chloride 104 mmol/L (98-107); Estimated GFR 69; Globulin 3.4 g/dL (2.4-3.5); Glucose 224 mg/dL (80-115); Potassium 5.1 mmol/L (3.5-5.1); Protein, Total 7.1 g/dL (5.8-8.1); Sodium 138 mmol/L (136-145)
[2023-08-12 22:42] LABS: Troponin I 0.047 ng/mL (< 0.028)
[2023-08-12 23:59] LABS: Bacteria/HPF None Seen HPF (None Seen); Bilirubin Negative (Negative); Blood, Urine Negative (Negative); CAUTI Indications for Culture Pelvic or flank pain; Clarity Clear (Clear); Glucose, Urine (Dipstick) 70 mg/dL (Negative); Ketone, Urine Negative (Negative); Leukocyte Negative Leu/uL (Negative); Nitrite Negative (Negative); Protein, Urine (Dipstick) 10 mg/dL (Neg-Trace); RBC/HPF 0-3 HPF (0-3); Specific Gravity, Urine 1.044 (1.002-1.036); Squamous Epithelial None Seen HPF (0-3); Urobilinogen Normal mg/dL (Less than 2); WBC/HPF 0-3 HPF (0-3)
[2023-08-13 00:05] LABS: Urine Culture Reflex No No
== END 2023-08-13 00:56 | disposition home or self-care (01) ==
LOC: ERS 20:47
DX: R11.2 Nausea with vomiting, unspecified (principal); R10.10 Upper abdominal pain, unspecified; T40.715A Adverse effect of cannabis, initial encounter; I11.0 Hypertensive heart disease with heart failure; I50.9 Heart failure, unspecified; E11.40 Type 2 diabetes mellitus with diabetic neuropathy, unspecified; I25.10 Atherosclerotic heart disease of native coronary artery without angina pectoris; Z55.6 Problems related to health literacy; Z91.89 Other specified personal risk factors, not elsewhere classified
CPT/HCPCS: 36415; 51701; 71260; 80053; 81001; 82565; 84484; 85025; 93005; 96360; 96361

== ENCOUNTER 2024-01-06 11:13 | Outpatient (CLI) | payer MEDICARE, MEDICAID ==
[2024-01-06] MEDS ORDERED: Magnevist 469MG/ML 20 ML VIAL ONE (11:16)
== END 2024-01-06 11:14 | disposition home or self-care (01) ==
LOC: MRI 11:13
PROVIDERS: ATTEND Physician Assistant Medical
DX: K74.60 Unspecified cirrhosis of liver (principal)
CPT/HCPCS: 36415; 74183; 82565

== ENCOUNTER 2024-03-21 15:17 | Outpatient (CLI) | payer OTHER, MEDICAID | END 2024-03-21 15:18 | disposition home or self-care (01) | LOC: CT 15:17 | PROVIDERS: ATTEND Internal Medicine Critical Care Medicine | DX: J84.115 Respiratory bronchiolitis interstitial lung disease (principal); J98.11 Atelectasis; J84.9 Interstitial pulmonary disease, unspecified | CPT/HCPCS: 71250 ==

== ENCOUNTER 2024-09-14 19:21 | Emergency (ER) | payer OTHER ==
[~2024-09-14 19:21] MED LIST changes: -Iopamidol-370 76% 500 ML 1 ML ONE; +Iopamidol-370 76% 500 ML MDV (1 ML CHARGE) ONE
[2024-09-14] MEDS ORDERED: Ondansetron PF 4 MG/2 ML Vial ONE (20:08)
[2024-09-14 20:27] LABS: #Basophils 0.06 10x3/uL (0.0-0.2); #Eosinophils 0.11 10x3/uL (0.0-0.7); #Monocytes 0.72 10x3/uL (0.11-0.59); #Neutrophils 8.95 10x3/uL (1.40-6.50); %Basophils 0.5 % (0.0-1.0); %Eosinophils 0.9 % (0.0-10.0); %Lymphocytes 18.4 % (21.0-51.0); %Monocytes 5.9 % (0.0-10.0); %Neutrophils 73.4 % (42.0-75.0); Hematocrit 39.5 % (36.0-47.0); Hemoglobin 13.2 g/dL (12.0-16.0); Mean Corpuscular Hemoglobin 29.8 pg (27.0-31.0); Mean Corpuscular Volume 89.2 fL (78.0-98.0); Platelet Count 181 10x3/uL (130-400); Red Blood Cell (RBC) Count 4.43 mill/uL (4.20-5.40); White Blood Cell (WBC) Count 12.20 10x3/uL (4.8-10.8)
[2024-09-14 20:43] LABS: INR-International Normal Ratio 1.2; PTT 26.2 sec (22.9-36.1); Prothrombin Time 15.2 sec (12.0-14.7)
[2024-09-14 20:51] LABS: ALT (SGPT) 13 U/L (Less than 34); AST (SGOT) 22 U/L (11-34); Albumin 3.8 g/dL (3.1-4.5); Alkaline Phosphatase 66 U/L (40-110); Anion Gap 14 mmol/L (10-20); BUN (Urea Nitrogen) 17 mg/dL (9.8-20.1); Bilirubin, Total 0.6 mg/dL (0.3-1.2); Calc. Creatinine Clearance 0 mL/min (70-130); Calcium 9.1 mg/dL (7.8-10.44); Carbon Dioxide 21 mmol/L (23-31); Chloride 105 mmol/L (98-107); Globulin 3.1 g/dL (2.4-3.5); Glucose 176 mg/dL (80-115); Potassium 4.6 mmol/L (3.5-5.1); Sodium 135 mmol/L (136-145)
[2024-09-14 20:57] LABS: Troponin I 0.061 ng/mL (< 0.028)
[2024-09-14] MEDS ORDERED: Ketorolac Tromethamine 30 MG (1 mL) VIAL ONE (23:11)
== END 2024-09-15 | disposition home or self-care (01) ==
LOC: ERS 19:21
DX: S42.011A Anterior displaced fracture of sternal end of right clavicle, initial encounter for closed fracture (principal); S00.03XA Contusion of scalp, initial encounter; R79.89 Other specified abnormal findings of blood chemistry; I11.0 Hypertensive heart disease with heart failure; I50.9 Heart failure, unspecified; E11.40 Type 2 diabetes mellitus with diabetic neuropathy, unspecified; F17.210 Nicotine dependence, cigarettes, uncomplicated; Z79.84 Long term (current) use of oral hypoglycemic drugs; Z79.899 Other long term (current) drug therapy; W01.10XA Fall on same level from slipping, tripping and stumbling with subsequent striking against unspecified object, initial encounter
CPT/HCPCS: 36415; 70450; 71045; 71260; 72125; 74177; 80053; 84484; 85025; 85610; 85730; 93005; 96374; 96375; 96376; J1885; J2270; J2272; J2405; Q9967

== ENCOUNTER 2024-10-07 13:23 | Observation (INO) | payer OTHER, MEDICAID ==
[2024-10-07 14:05] LABS: #Basophils 0.08 10x3/uL (0.0-0.2); #Eosinophils 0.20 10x3/uL (0.0-0.7); #Monocytes 0.65 10x3/uL (0.11-0.59); #Neutrophils 5.90 10x3/uL (1.40-6.50); %Basophils 0.8 % (0.0-1.0); %Eosinophils 2.1 % (0.0-10.0); %Lymphocytes 26.8 % (21.0-51.0); %Monocytes 6.9 % (0.0-10.0); %Neutrophils 62.3 % (42.0-75.0); Hematocrit 38.2 % (36.0-47.0); Hemoglobin 12.8 g/dL (12.0-16.0); Mean Corpuscular Hemoglobin 29.7 pg (27.0-31.0); Mean Corpuscular Volume 88.6 fL (78.0-98.0); Platelet Count 162 10x3/uL (130-400); Red Blood Cell (RBC) Count 4.31 mill/uL (4.20-5.40); White Blood Cell (WBC) Count 9.47 10x3/uL (4.8-10.8)
[2024-10-07] MEDS ORDERED: Ondansetron PF 4 MG/2 ML Vial ONE (14:05)
[2024-10-07 14:28] LABS: ALT (SGPT) 9 U/L (Less than 34); AST (SGOT) 26 U/L (11-34); Albumin 3.6 g/dL (3.1-4.5); Alkaline Phosphatase 54 U/L (40-110); Anion Gap 12 mmol/L (10-20); BUN (Urea Nitrogen) 14 mg/dL (9.8-20.1); Bilirubin, Total 0.6 mg/dL (0.3-1.2); Calc. Creatinine Clearance 0 mL/min (70-130); Calcium 9.1 mg/dL (7.8-10.44); Carbon Dioxide 24 mmol/L (23-31); Chloride 107 mmol/L (98-107); Globulin 3.3 g/dL (2.4-3.5); Glucose 132 mg/dL (80-115); Potassium 4.2 mmol/L (3.5-5.1); Sodium 139 mmol/L (136-145)
[2024-10-07] MEDS ORDERED: Ketorolac Tromethamine 30 MG (1 mL) VIAL ONE (14:50)
[2024-10-07] MEDS ORDERED: HYDROcodone/Acetaminophen 10/325 mg Tablet PO PRN (16:26)
[2024-10-07] MEDS ORDERED: Acetaminophen 325 MG TAB PO PRN (16:26)
[2024-10-07] MEDS ORDERED: Communication Order-Pharmacy FS SCH (16:30)
[2024-10-07] MEDS ORDERED: Electrolyte Replacement Protocol 1 EACH FS SCH (17:28)
[2024-10-07 17:50] LABS: Magnesium 1.6 mg/dL (1.6-2.6)
[2024-10-07] MEDS ORDERED: Dextrose 50% Abboject 50 ML SYRINGE SLOW IVP PRN (18:23)
[2024-10-07] MEDS ORDERED: Glucagon 1 MG/ML KIT IM PRN (18:23)
[2024-10-07] MEDS ORDERED: cloNIDine 0.1 MG TAB PO PRN (18:24)
[2024-10-07] MEDS ORDERED: hydrALAZINE 20 MG/ML VIAL SLOW IVP PRN (18:47)
[2024-10-07] MEDS: Mometasone 200 MCG/Formoterol 5 MCG 120 PUFF INHALER INH SCH (18:49)
[2024-10-07 19:13] LABS: Troponin I 0.076 ng/mL (< 0.028)
[2024-10-07] MEDS: HYDROcodone/Acetaminophen 10/325 mg Tablet PO PRN (20:48)
[2024-10-07] MEDS: Aspirin 81 mg Enteric Coated Tablet PO SCH (20:49)
[2024-10-07] MEDS: Famotidine 20 MG TAB PO SCH (20:50)
[2024-10-07] MEDS: Multivit, Therapeutic 1 TAB PO SCH (20:50)
[2024-10-07] MEDS: Magnesium 2 GM/50 ML(in water) 2 GM in Premix 1 BAG IVPB SCH (20:50)
[2024-10-07] MEDS: Senokot S 8.6-50 MG TAB PO SCH (20:50)
[2024-10-07] MEDS: Ondansetron PF 4 MG/2 ML Vial IVP PRN (20:55)
[2024-10-07] MEDS: Sertraline 100 MG TAB PO SCH (22:28)
[2024-10-07] MEDS: Carvedilol 3.125 MG TAB PO SCH (22:28)
[2024-10-08 01:51] VITALS: BMI 33.5
[2024-10-08 05:07] LABS: #Basophils 0.11 10x3/uL (0.0-0.2); #Eosinophils 0.27 10x3/uL (0.0-0.7); #Monocytes 0.83 10x3/uL (0.11-0.59); #Neutrophils 5.48 10x3/uL (1.40-6.50); %Basophils 1.2 % (0.0-1.0); %Eosinophils 3.0 % (0.0-10.0); %Lymphocytes 23.7 % (21.0-51.0); %Monocytes 9.3 % (0.0-10.0); %Neutrophils 61.8 % (42.0-75.0); Hematocrit 35.3 % (36.0-47.0); Hemoglobin 11.3 g/dL (12.0-16.0); Mean Corpuscular Hemoglobin 29.7 pg (27.0-31.0); Mean Corpuscular Volume 92.9 fL (78.0-98.0); Platelet Count 164 10x3/uL (130-400); Red Blood Cell (RBC) Count 3.80 mill/uL (4.20-5.40); White Blood Cell (WBC) Count 8.89 10x3/uL (4.8-10.8)
[2024-10-08 06:15] LABS: Anion Gap 13 mmol/L (10-20); BUN (Urea Nitrogen) 18 mg/dL (9.8-20.1); Calc. Creatinine Clearance 68 mL/min (70-130); Calcium 8.9 mg/dL (7.8-10.44); Carbon Dioxide 25 mmol/L (23-31); Chloride 103 mmol/L (98-107); Glucose 155 mg/dL (80-115); Magnesium 2.0 mg/dL (1.6-2.6); Potassium 4.3 mmol/L (3.5-5.1); Sodium 137 mmol/L (136-145)
[2024-10-08 06:50] LABS: Troponin I 0.086 ng/mL (< 0.028)
[2024-10-08] MEDS: Calcium Carbonate 600 MG + Vit D TAB PO SCH (08:19)
[2024-10-08] MEDS: PHOS-NAK 1 PKT PACK PO SCH (08:20)
[2024-10-08] MEDS: Carvedilol 3.125 MG TAB PO SCH (08:20)
[2024-10-08] MEDS: Magnesium 2 GM/50 ML(in water) 2 GM in Premix 1 BAG IVPB SCH (08:54)
[2024-10-08 09:21] VITALS: BP 111/71; TEMP 98.1
[2024-10-08] MEDS ORDERED: Sertraline 100 MG TAB PO SCH (21:00)
== END 2024-10-08 11:48 | disposition home or self-care (01) ==
LOC: ERS 13:23 → SURG B 17:26
PROVIDERS: ADMIT Internal Medicine; ATTEND Internal Medicine
DX: S42.301A Unspecified fracture of shaft of humerus, right arm, initial encounter for closed fracture (principal); I25.10 Atherosclerotic heart disease of native coronary artery without angina pectoris; E11.9 Type 2 diabetes mellitus without complications; I48.0 Paroxysmal atrial fibrillation; J44.9 Chronic obstructive pulmonary disease, unspecified; F17.210 Nicotine dependence, cigarettes, uncomplicated; F41.9 Anxiety disorder, unspecified; I11.0 Hypertensive heart disease with heart failure; I50.9 Heart failure, unspecified; Z79.01 Long term (current) use of anticoagulants; Z88.1 Allergy status to other antibiotic agents; Z88.0 Allergy status to penicillin; Z88.5 Allergy status to narcotic agent; Z91.041 Radiographic dye allergy status; Z88.8 Allergy status to other drugs, medicaments and biological substances; Z79.84 Long term (current) use of oral hypoglycemic drugs; W18.30XA Fall on same level, unspecified, initial encounter
CPT/HCPCS: 70450; 71045; 72125; 73060; 80048; 80053; 82962 ×2; 83735 ×2; 84484 ×2; 85025 ×2; 93005; 94640; 94664; 96374; 96375; 96376; 99285; J1885; J2270 ×2; J2405; J3475 ×2; 36415; 36416; 96365; G0378; G0390

== ENCOUNTER 2024-10-11 10:58 | Inpatient (IN) | payer OTHER, MEDICAID ==
[2024-10-10 14:21] VITALS: BMI 35.7
[2024-10-11] MEDS ORDERED: Lidocaine 1% PF 5 ML VIAL ONE (12:16)
[2024-10-11] MEDS ORDERED: PROPOFOL 20 ML ONE (12:16)
[2024-10-11] MEDS ORDERED: Rocuronium Bromide 10 MG/ML (10ML VIAL) ONE (12:16)
[2024-10-11] MEDS ORDERED: fentaNYL PF 100 MCG/2 ML SYRINGE ONE (12:16)
[2024-10-11] MEDS ORDERED: LevoFLOXacin D5W 500 mg (100 mL) BAG ONE (12:39)
[2024-10-11] MEDS ORDERED: Ketamine In 0.9 % NaCl 50 MG/5 ML SYRINGE ONE (13:00)
[2024-10-11] MEDS ORDERED: Ondansetron PF 4 MG/2 ML Vial ONE (13:47)
[2024-10-11] MEDS ORDERED: PHENYLEPHRINE-NS 100 MCG/ML 10 ML SYRINGE ONE (13:47)
[2024-10-11] MEDS ORDERED: Acetaminophen 325 MG TAB PO PRN (13:55)
[2024-10-11] MEDS ORDERED: Nitroglycerin 0.4 MG TAB (25 Tab Bottle) SL PRN (13:58)
[2024-10-11] MEDS ORDERED: ALBUTEROL SULFATE INH PRN (13:58)
[2024-10-11] MEDS ORDERED: Communication Order-Pharmacy FS SCH (14:00)
[2024-10-11] MEDS ORDERED: HYDROmorphone 0.5 MG/0.5 ML SYRINGE ONE ×3 (15:27→19:06)
[2024-10-11] MEDS ORDERED: Acetaminophen/Codeine 30-300mg Tablet PO PRN (15:37)
[2024-10-11] MEDS ORDERED: cloNIDine 0.1 MG TAB ONE (15:57)
[2024-10-11] MEDS: cloNIDine 0.1 MG TAB PO SCH (16:02)
[2024-10-11] MEDS: HYDROcodone/Acetaminophen 10/325 mg Tablet PO PRN (21:25)
[2024-10-11] MEDS: Sertraline 100 MG TAB PO SCH (22:15)
[2024-10-11] MEDS: Carvedilol 3.125 MG TAB PO SCH (22:16)
[2024-10-11] MEDS: metFORMIN XR 500 MG ER.TAB PO SCH (22:16)
[2024-10-11] MEDS: Lisinopril 20 MG TAB PO SCH (22:16)
[2024-10-11] MEDS: Furosemide 40 MG TAB PO SCH (22:17)
[2024-10-11] MEDS: Clindamycin/D5W 900 MG in Premix 1 BAG IVPB SCH (22:18)
[2024-10-11] MEDS ORDERED: Dextrose 50% Abboject 50 ML SYRINGE SLOW IVP PRN (23:48)
[2024-10-11] MEDS ORDERED: Glucagon 1 MG/ML KIT IM PRN (23:48)
[2024-10-12] MEDS: Ondansetron PF 4 MG/2 ML Vial IVP PRN (00:37)
[2024-10-12] MEDS ORDERED: Calcium Carbonate 500 MG ChewTAB PO PRN (00:59)
[2024-10-12] MEDS: Pantoprazole 40 MG VIAL IVP PRN (03:45)
[2024-10-12] MEDS: Lidocaine 2% Viscous Solution 10 ML, Aluminum & Magnesium Hydroxide 30 ML SSW SCH (03:45)
[2024-10-12] MEDS: Carvedilol 3.125 MG TAB PO SCH (04:47)
[2024-10-12 06:00] LABS: ALT (SGPT) 8 U/L (Less than 34); AST (SGOT) 23 U/L (11-34); Albumin 3.3 g/dL (3.1-4.5); Alkaline Phosphatase 58 U/L (40-110); Anion Gap 14 mmol/L (10-20); BUN (Urea Nitrogen) 22 mg/dL (9.8-20.1); Bilirubin, Total 1.1 mg/dL (0.3-1.2); Calc. Creatinine Clearance 83 mL/min (70-130); Calcium 8.4 mg/dL (7.8-10.44); Carbon Dioxide 22 mmol/L (23-31); Chloride 99 mmol/L (98-107); Globulin 3.0 g/dL (2.4-3.5); Glucose 173 mg/dL (80-115); Magnesium 1.9 mg/dL (1.6-2.6); Potassium 5.5 mmol/L (3.5-5.1); Sodium 129 mmol/L (136-145)
[2024-10-12] MEDS: Mometasone 200 MCG/Formoterol 5 MCG 120 PUFF INHALER INH SCH (07:10)
[2024-10-12 07:16] LABS: #Basophils 0.05 10x3/uL (0.0-0.2); #Eosinophils 0.31 10x3/uL (0.0-0.7); #Monocytes 1.00 10x3/uL (0.11-0.59); #Neutrophils 7.34 10x3/uL (1.40-6.50); %Basophils 0.5 % (0.0-1.0); %Eosinophils 3.1 % (0.0-10.0); %Lymphocytes 11.4 % (21.0-51.0); %Monocytes 10.1 % (0.0-10.0); %Neutrophils 73.8 % (42.0-75.0); Hematocrit 32.6 % (36.0-47.0); Hemoglobin 10.3 g/dL (12.0-16.0); Mean Corpuscular Hemoglobin 29.1 pg (27.0-31.0); Mean Corpuscular Volume 92.1 fL (78.0-98.0); Platelet Count 183 10x3/uL (130-400); Red Blood Cell (RBC) Count 3.54 mill/uL (4.20-5.40); White Blood Cell (WBC) Count 9.94 10x3/uL (4.8-10.8)
[2024-10-12] MEDS: predniSONE 20 MG TAB PO SCH (09:32)
[2024-10-12] MEDS: Pantoprazole 40 MG DR.TAB PO SCH (09:32)
[2024-10-12] MEDS: Dextrose 50% Abboject 50 ML SYRINGE SLOW IVP SCH (11:42)
[2024-10-12] MEDS: Sodium Polystyrene Sulfonate 15 GM (60 mL) BOT PO SCH (11:43)
[2024-10-12 11:48] VITALS: TEMP 97.7
[2024-10-12] MEDS: Albuterol 2.5 MG (3 mL) NEB NEB SCH (11:53)
[2024-10-12 15:40] VITALS: BP 107/66
[2024-10-12 16:07] LABS: Potassium 4.7 mmol/L (3.5-5.1)
[2024-10-12] MEDS ORDERED: Carvedilol 3.125 MG TAB PO SCH (21:00)
[2024-10-16] MEDS ORDERED: DULAGLUTIDE SC SCH (09:00)
== END 2024-10-12 18:45 | disposition home health service (06) | DRG 493 ==
LOC: SDC 10:58 → SURG A 13:55 → OBSVTOIN 10-12 12:50
PROVIDERS: ADMIT Orthopaedic Surgery; ATTEND Orthopaedic Surgery
PROC: 0PSF04Z Reposition Right Humeral Shaft with Internal Fixation Device, Open Approach (ICD-10-PCS; principal; 2024-10-12)
PROC: 3E033XZ Introduction of Vasopressor into Peripheral Vein, Percutaneous Approach (ICD-10-PCS; 2024-10-12)
DX: S42.291A Other displaced fracture of upper end of right humerus, initial encounter for closed fracture (principal); I50.22 Chronic systolic (congestive) heart failure; I11.0 Hypertensive heart disease with heart failure; E87.5 Hyperkalemia; E78.5 Hyperlipidemia, unspecified; I25.10 Atherosclerotic heart disease of native coronary artery without angina pectoris; J44.9 Chronic obstructive pulmonary disease, unspecified; Z79.899 Other long term (current) drug therapy; E11.40 Type 2 diabetes mellitus with diabetic neuropathy, unspecified; F17.210 Nicotine dependence, cigarettes, uncomplicated; X58.XXXA Exposure to other specified factors, initial encounter
CPT/HCPCS: 36415; 36416; 72170; 80053; 83735; 84443; 85025; 94640; 96372; 99282; C1713; J1171; J1815; J1885; J1956; J2270; J2272; J2360; J2405; J2470; J2704; J3010; J3490; J7512; J7611; J7620; J7999

== ENCOUNTER 2024-10-15 12:21 | Emergency (ER) | payer OTHER, MEDICAID ==
[2024-10-15] MEDS ORDERED: Methocarbamol 500 MG TAB ONE (13:33)
[2024-10-15] MEDS ORDERED: Ketorolac Tromethamine 30 MG (1 mL) VIAL ONE (13:33)
[2024-10-15 14:02] LABS: ALT (SGPT) Less than 7 U/L (Less than 34); AST (SGOT) 19 U/L (11-34); Albumin 3.0 g/dL (3.1-4.5); Alkaline Phosphatase 58 U/L (40-110); Anion Gap 16 mmol/L (10-20); BUN (Urea Nitrogen) 18 mg/dL (9.8-20.1); Bilirubin, Total 0.9 mg/dL (0.3-1.2); Calc. Creatinine Clearance 0 mL/min (70-130); Calcium 8.5 mg/dL (7.8-10.44); Carbon Dioxide 22 mmol/L (23-31); Chloride 103 mmol/L (98-107); Globulin 3.5 g/dL (2.4-3.5); Glucose 227 mg/dL (80-115); Potassium 4.5 mmol/L (3.5-5.1); Sodium 136 mmol/L (136-145)
[2024-10-15 14:28] LABS: #Basophils 0.04 10x3/uL (0.0-0.2); #Eosinophils 0.25 10x3/uL (0.0-0.7); #Monocytes 0.37 10x3/uL (0.11-0.59); #Neutrophils 6.60 10x3/uL (1.40-6.50); %Basophils 0.5 % (0.0-1.0); %Eosinophils 3.1 % (0.0-10.0); %Lymphocytes 6.9 % (21.0-51.0); %Monocytes 4.7 % (0.0-10.0); %Neutrophils 83.0 % (42.0-75.0); Hematocrit 34.8 % (36.0-47.0); Hemoglobin 11.4 g/dL (12.0-16.0); Mean Corpuscular Hemoglobin 29.8 pg (27.0-31.0); Mean Corpuscular Volume 91.1 fL (78.0-98.0); Platelet Count 180 10x3/uL (130-400); Red Blood Cell (RBC) Count 3.82 mill/uL (4.20-5.40); White Blood Cell (WBC) Count 7.95 10x3/uL (4.8-10.8)
== END 2024-10-15 16:00 | disposition home or self-care (01) ==
LOC: ERS 12:21
DX: S51.811A Laceration without foreign body of right forearm, initial encounter (principal); S61.511A Laceration without foreign body of right wrist, initial encounter; G89.18 Other acute postprocedural pain; I11.0 Hypertensive heart disease with heart failure; I50.9 Heart failure, unspecified; J44.9 Chronic obstructive pulmonary disease, unspecified; I48.91 Unspecified atrial fibrillation; E11.40 Type 2 diabetes mellitus with diabetic neuropathy, unspecified; F17.210 Nicotine dependence, cigarettes, uncomplicated; Z95.1 Presence of aortocoronary bypass graft; Z55.6 Problems related to health literacy; X58.XXXA Exposure to other specified factors, initial encounter
CPT/HCPCS: 80053; 85025; 93971; J1885; J2270; 12001; 36415; 96372

== ENCOUNTER 2024-11-01 16:28 | Inpatient (IN) | payer OTHER, MEDICAID ==
[2024-11-01 17:31] LABS: Bacteria/HPF None Seen HPF (None Seen); CAUTI Indications for Culture Dysuria,urgency,freq; Glucose, Urine (Dipstick) Normal (Negative); Leukocyte Negative Leu/uL (Negative); Protein, Urine (Dipstick) Negative (Neg-Trace); RBC/HPF 0-3 HPF (0-3); Specific Gravity, Urine 1.010 (1.002-1.036); WBC/HPF 0-3 HPF (0-3)
[2024-11-01 17:35] LABS: Urine Culture Reflex No No
[2024-11-01 17:38] LABS: Cocaine Metabolite Screen Negative (Negative); THC/Cannabinoid Screen Negative (Negative); Tricyclic Screen Negative (Negative)
[2024-11-01 18:07] LABS: #Basophils 0.09 10x3/uL (0.0-0.2); #Eosinophils 0.40 10x3/uL (0.0-0.7); #Monocytes 0.67 10x3/uL (0.11-0.59); #Neutrophils 5.55 10x3/uL (1.40-6.50); %Basophils 0.9 % (0.0-1.0); %Eosinophils 4.2 % (0.0-10.0); %Lymphocytes 28.4 % (21.0-51.0); %Monocytes 7.1 % (0.0-10.0); %Neutrophils 58.6 % (42.0-75.0); Hematocrit 40.8 % (36.0-47.0); Hemoglobin 13.1 g/dL (12.0-16.0); Mean Corpuscular Hemoglobin 30.0 pg (27.0-31.0); Mean Corpuscular Volume 93.6 fL (78.0-98.0); Platelet Count 241 10x3/uL (130-400); Red Blood Cell (RBC) Count 4.36 mill/uL (4.20-5.40); White Blood Cell (WBC) Count 9.48 10x3/uL (4.8-10.8)
[2024-11-01 18:18] LABS: Acetaminophen Less than 10 mcg/mL (Less than 10); Salicylate Less than 8.0 mg/dL (Less than 8.0)
[2024-11-01 18:19] LABS: ALT (SGPT) 9 U/L (Less than 34); AST (SGOT) 22 U/L (11-34); Albumin 4.0 g/dL (3.1-4.5); Alkaline Phosphatase 101 U/L (40-110); Anion Gap 13 mmol/L (10-20); BUN (Urea Nitrogen) 25 mg/dL (9.8-20.1); Bilirubin, Total 0.6 mg/dL (0.3-1.2); Calc. Creatinine Clearance 0 mL/min (70-130); Calcium 9.5 mg/dL (7.8-10.44); Carbon Dioxide 26 mmol/L (23-31); Chloride 99 mmol/L (98-107); Globulin 3.6 g/dL (2.4-3.5); Glucose 290 mg/dL (80-115); Potassium 4.6 mmol/L (3.5-5.1); Sodium 133 mmol/L (136-145)
[2024-11-01] MEDS ORDERED: HYDROcodone/Acetaminophen 10/325 mg Tablet ONE (21:20)
[2024-11-02] MEDS ORDERED: Acetaminophen 325 MG TAB PO PRN (00:56)
[2024-11-02] MEDS ORDERED: Dextrose 50% Abboject 50 ML SYRINGE SLOW IVP PRN (00:56)
[2024-11-02] MEDS ORDERED: Ondansetron PF 4 MG/2 ML Vial IVP PRN (00:56)
[2024-11-02] MEDS ORDERED: Calcium Carbonate 500 MG ChewTAB PO PRN (00:56)
[2024-11-02] MEDS ORDERED: Glucagon 1 MG/ML KIT IM PRN (00:56)
[2024-11-02] MEDS ORDERED: Electrolyte Replacement Protocol 1 EACH FS SCH (01:00)
[2024-11-02 04:29] LABS: #Basophils 0.05 10x3/uL (0.0-0.2); #Eosinophils Less than 0.03 10x3/uL (0.0-0.7); #Monocytes 0.08 10x3/uL (0.11-0.59); #Neutrophils 6.60 10x3/uL (1.40-6.50); %Basophils 0.7 % (0.0-1.0); %Eosinophils 0.0 % (0.0-10.0); %Lymphocytes 4.6 % (21.0-51.0); %Monocytes 1.1 % (0.0-10.0); %Neutrophils 92.5 % (42.0-75.0); Hematocrit 39.2 % (36.0-47.0); Hemoglobin 12.5 g/dL (12.0-16.0); Mean Corpuscular Hemoglobin 29.1 pg (27.0-31.0); Mean Corpuscular Volume 91.2 fL (78.0-98.0); Platelet Count 198 10x3/uL (130-400); Red Blood Cell (RBC) Count 4.30 mill/uL (4.20-5.40); White Blood Cell (WBC) Count 7.14 10x3/uL (4.8-10.8)
[2024-11-02 04:45] LABS: ALT (SGPT) 10 U/L (Less than 34); AST (SGOT) 17 U/L (11-34); Albumin 3.5 g/dL (3.1-4.5); Anion Gap 14 mmol/L (10-20); BUN (Urea Nitrogen) 25 mg/dL (9.8-20.1); Bilirubin, Total 0.5 mg/dL (0.3-1.2); Calc. Creatinine Clearance 0 mL/min (70-130); Calcium 8.8 mg/dL (7.8-10.44); Carbon Dioxide 22 mmol/L (23-31); Chloride 100 mmol/L (98-107); Globulin 3.1 g/dL (2.4-3.5); Glucose 484 mg/dL (80-115); Potassium 5.6 mmol/L (3.5-5.1); Sodium 130 mmol/L (136-145)
[2024-11-02] MEDS: HYDROcodone/Acetaminophen 10/325 mg Tablet PO PRN (05:25)
[2024-11-02 05:30] VITALS: BMI 34.4
[2024-11-02 05:30] LABS: Alkaline Phosphatase 92 U/L (40-110)
[2024-11-02] MEDS: Mometasone 200 MCG/Formoterol 5 MCG 120 PUFF INHALER INH SCH (07:12)
[2024-11-02] MEDS: Lisinopril 20 MG TAB PO SCH (08:23)
[2024-11-02] MEDS: Carvedilol 3.125 MG TAB PO SCH (08:23)
[2024-11-02 09:29] LABS: Cardiac Risk 4.1 (Less than 4.5); Cholesterol 159.0 mg/dl (< 200 Desired); HDL Cholesterol 39.0 mg/dL (>60 Neg Risk); LDL Cholesterol, Calculated 94.0 mg/dL; Triglycerides 128.0 mg/dL (Less than 150)
[2024-11-02] MEDS: cloNIDine 0.1 MG TAB PO SCH (09:50)
[2024-11-02] MEDS: Aspirin 81 mg Enteric Coated Tablet PO SCH (09:50)
[2024-11-02] MEDS: metFORMIN XR 500 MG ER.TAB PO SCH (15:30)
[2024-11-02] MEDS: Sertraline 100 MG TAB PO SCH (21:24)
[2024-11-03] MEDS: Aspirin 81 mg Enteric Coated Tablet PO SCH (08:06)
[2024-11-03] MEDS ORDERED: HYDROcodone/Acetaminophen 10/325 mg Tablet PO PRN (11:30)
[2024-11-03] MEDS: HYDROcodone/Acetaminophen 10/325 mg Tablet PO SCH (12:35)
[2024-11-03] MEDS: Insulin Glargine 30 UNITS/0.3 ML VIAL SC SCH (12:38)
[2024-11-03 16:17] VITALS: BP 126/76; TEMP 98
== END 2024-11-03 17:33 | disposition home or self-care (01) | DRG 309 ==
LOC: ERS 16:28 → 2NO 23:24 → OBSVTOIN 11-03 08:52
PROVIDERS: ADMIT Student in an Organized Health Care Education/Training Program; ATTEND Hospitalist
DX: I48.0 Paroxysmal atrial fibrillation (principal); I50.32 Chronic diastolic (congestive) heart failure; J44.1 Chronic obstructive pulmonary disease with (acute) exacerbation; I25.10 Atherosclerotic heart disease of native coronary artery without angina pectoris; K74.60 Unspecified cirrhosis of liver; E11.42 Type 2 diabetes mellitus with diabetic polyneuropathy; I11.0 Hypertensive heart disease with heart failure; F32.A Depression, unspecified; F43.10 Post-traumatic stress disorder, unspecified; E11.65 Type 2 diabetes mellitus with hyperglycemia; F41.1 Generalized anxiety disorder; F17.210 Nicotine dependence, cigarettes, uncomplicated; R79.89 Other specified abnormal findings of blood chemistry; Z98.890 Other specified postprocedural states; Z88.8 Allergy status to other drugs, medicaments and biological substances; Z88.0 Allergy status to penicillin; Z88.1 Allergy status to other antibiotic agents; Z95.5 Presence of coronary angioplasty implant and graft; Z90.89 Acquired absence of other organs; Z91.148 Patient's other noncompliance with medication regimen for other reason
CPT/HCPCS: 36415; 36416; 71045; 78452; 80053; 80061; 80306; 80307; 81001; 83036; 83880; 84439; 84484; 85025; 93005; 93017; 96374; A9502; J1815; J2785; J2919; J7620; Q0162

== ENCOUNTER 2024-12-04 15:08 | Emergency (ER) | payer MEDICARE, OTHER ==
[2024-12-04 17:04] LABS: #Basophils 0.06 10x3/uL (0.0-0.2); #Eosinophils 0.11 10x3/uL (0.0-0.7); #Monocytes 0.75 10x3/uL (0.11-0.59); #Neutrophils 6.28 10x3/uL (1.40-6.50); %Basophils 0.6 % (0.0-1.0); %Eosinophils 1.2 % (0.0-10.0); %Lymphocytes 23.7 % (21.0-51.0); %Monocytes 7.9 % (0.0-10.0); %Neutrophils 66.0 % (42.0-75.0); Hematocrit 37.0 % (36.0-47.0); Hemoglobin 11.9 g/dL (12.0-16.0); Mean Corpuscular Hemoglobin 29.2 pg (27.0-31.0); Mean Corpuscular Volume 90.7 fL (78.0-98.0); Platelet Count 177 10x3/uL (130-400); Red Blood Cell (RBC) Count 4.08 mill/uL (4.20-5.40); White Blood Cell (WBC) Count 9.51 10x3/uL (4.8-10.8)
[2024-12-04 17:25] LABS: ALT (SGPT) 10 U/L (Less than 34); AST (SGOT) 16 U/L (11-34); Albumin 3.2 g/dL (3.1-4.5); Alkaline Phosphatase 64 U/L (40-110); Anion Gap 15 mmol/L (10-20); BUN (Urea Nitrogen) 29 mg/dL (9.8-20.1); Bilirubin, Total 0.4 mg/dL (0.3-1.2); Calc. Creatinine Clearance 0 mL/min (70-130); Calcium 8.8 mg/dL (7.8-10.44); Carbon Dioxide 25 mmol/L (23-31); Chloride 102 mmol/L (98-107); Globulin 3.0 g/dL (2.4-3.5); Glucose 78 mg/dL (80-115); Potassium 3.7 mmol/L (3.5-5.1); Sodium 138 mmol/L (136-145)
[2024-12-04] MEDS ORDERED: Ketorolac Tromethamine 30 MG (1 mL) VIAL ONE (19:54)
[2024-12-04] MEDS ORDERED: HYDROcodone/Acetaminophen 5/325 mg Tablet ONE (19:54)
== END 2024-12-04 20:35 | disposition home or self-care (01) ==
LOC: ERS 15:08
DX: S32.010A Wedge compression fracture of first lumbar vertebra, initial encounter for closed fracture (principal); J18.9 Pneumonia, unspecified organism; J44.9 Chronic obstructive pulmonary disease, unspecified; I11.0 Hypertensive heart disease with heart failure; I50.9 Heart failure, unspecified; E11.40 Type 2 diabetes mellitus with diabetic neuropathy, unspecified; F17.210 Nicotine dependence, cigarettes, uncomplicated; W19.XXXA Unspecified fall, initial encounter; Y93.01 Activity, walking, marching and hiking; Z95.5 Presence of coronary angioplasty implant and graft
CPT/HCPCS: 71045; 72100; 72170; 73060; 80053; 83880; 84484; 85025; 93005; 93971; J1885; J2270; 96374; 96375

== ENCOUNTER 2024-12-29 14:39 | Outpatient (CLI) | payer OTHER, MEDICAID | END 2024-12-29 14:40 | disposition home or self-care (01) | LOC: RAD 14:39 | PROVIDERS: ATTEND Internal Medicine Critical Care Medicine | DX: R06.00 Dyspnea, unspecified (principal); R91.8 Other nonspecific abnormal finding of lung field | CPT/HCPCS: 71046 ==

== ENCOUNTER 2024-12-29 18:04 | Inpatient (IN) | payer OTHER, MEDICAID ==
[2024-12-29] MEDS ORDERED: Ondansetron PF 4 MG/2 ML Vial ONE (20:26)
[2024-12-30] MEDS ORDERED: Furosemide 40 MG (4 mL) VIAL ONE (02:03)
[2024-12-30] MEDS ORDERED: Ondansetron PF 4 MG/2 ML Vial ONE (02:03)
[2024-12-30] MEDS ORDERED: Glucagon 1 MG/ML KIT IM PRN (03:07)
[2024-12-30] MEDS ORDERED: Acetaminophen 325 MG TAB PO PRN (03:07)
[2024-12-30] MEDS ORDERED: Dextrose 50% Abboject 50 ML SYRINGE SLOW IVP PRN (03:07)
[2024-12-30] MEDS ORDERED: Ondansetron PF 4 MG/2 ML Vial IVP PRN (03:07)
[2024-12-30 08:20] LABS: ALT (SGPT) 7 U/L (Less than 34); AST (SGOT) 18 U/L (11-34); Albumin 3.4 g/dL (3.1-4.5); Alkaline Phosphatase 73 U/L (40-110); Anion Gap 12 mmol/L (10-20); BUN (Urea Nitrogen) 18 mg/dL (9.8-20.1); Bilirubin, Total 0.4 mg/dL (0.3-1.2); Calc. Creatinine Clearance 0 mL/min (70-130); Calcium 9.2 mg/dL (7.8-10.44); Carbon Dioxide 28 mmol/L (23-31); Chloride 104 mmol/L (98-107); Globulin 3.2 g/dL (2.4-3.5); Glucose 207 mg/dL (80-115); Lipase 14 U/L (8-78); Potassium 4.7 mmol/L (3.5-5.1); Sodium 139 mmol/L (136-145)
[2024-12-30 08:41] LABS: %Basophils 0.6 % (0.0-1.0); %Eosinophils 0.4 % (0.0-10.0); %Lymphocytes 13.5 % (21.0-51.0); %Monocytes 5.6 % (0.0-10.0); %Neutrophils 79.2 % (42.0-75.0); Hematocrit 38.4 % (36.0-47.0); Hemoglobin 12.4 g/dL (12.0-16.0); Mean Corpuscular Hemoglobin 27.7 pg (27.0-31.0); Mean Corpuscular Volume 85.7 fL (78.0-98.0); Platelet Count 199 10x3/uL (130-400); Red Blood Cell (RBC) Count 4.48 mill/uL (4.20-5.40); White Blood Cell (WBC) Count 9.05 10x3/uL (4.8-10.8)
[2024-12-30 08:42] LABS: #Basophils 0.05 10x3/uL (0.0-0.2); #Eosinophils 0.04 10x3/uL (0.0-0.7); #Monocytes 0.51 10x3/uL (0.11-0.59); #Neutrophils 7.17 10x3/uL (1.40-6.50)
[2024-12-30] MEDS: cloNIDine 0.1 MG TAB PO SCH (08:51)
[2024-12-30] MEDS: Carvedilol 3.125 MG TAB PO SCH (08:51)
[2024-12-30] MEDS: Lisinopril 20 MG TAB PO SCH (08:51)
[2024-12-30] MEDS ORDERED: Non-Formulary Item 1 EACH (Enalapril Maleate [Enalapril Maleate] 20 MG Tablet) PO SCH (09:00)
[2024-12-30 10:23] LABS: #Basophils 0.07 10x3/uL (0.0-0.2); #Eosinophils 0.17 10x3/uL (0.0-0.7); #Monocytes 0.86 10x3/uL (0.11-0.59); #Neutrophils 5.95 10x3/uL (1.40-6.50); %Basophils 0.7 % (0.0-1.0); %Eosinophils 1.8 % (0.0-10.0); %Lymphocytes 24.6 % (21.0-51.0); %Monocytes 9.1 % (0.0-10.0); %Neutrophils 63.0 % (42.0-75.0); Hematocrit 39.3 % (36.0-47.0); Hemoglobin 12.5 g/dL (12.0-16.0); Mean Corpuscular Hemoglobin 27.8 pg (27.0-31.0); Mean Corpuscular Volume 87.3 fL (78.0-98.0); Platelet Count 196 10x3/uL (130-400); Red Blood Cell (RBC) Count 4.50 mill/uL (4.20-5.40); White Blood Cell (WBC) Count 9.46 10x3/uL (4.8-10.8)
[2024-12-30 10:56] LABS: Anion Gap 13 mmol/L (10-20); BUN (Urea Nitrogen) 19 mg/dL (9.8-20.1); Calc. Creatinine Clearance 0 mL/min (70-130); Calcium 9.0 mg/dL (7.8-10.44); Carbon Dioxide 30 mmol/L (23-31); Chloride 100 mmol/L (98-107); Glucose 190 mg/dL (80-115); Potassium 4.3 mmol/L (3.5-5.1); Sodium 139 mmol/L (136-145)
[2024-12-30] MEDS: Furosemide 40 MG (4 mL) VIAL SLOW IVP SCH (15:28)
[2024-12-30] MEDS: HYDROcodone/Acetaminophen 10/325 mg Tablet PO PRN (20:35)
[2024-12-30] MEDS: Sertraline 100 MG TAB PO SCH (20:36)
[2024-12-30] MEDS: Insulin Glargine 30 UNITS/0.3 ML VIAL SC SCH (21:59)
[2024-12-31 03:48] VITALS: BMI 34.9
[2024-12-31 11:05] VITALS: BP 116/74; TEMP 97.8
== END 2024-12-31 11:35 | disposition home or self-care (01) | DRG 280 ==
LOC: ERS 18:04 → OBS 12-30 03:07
PROVIDERS: ADMIT Internal Medicine; ATTEND Student in an Organized Health Care Education/Training Program
DX: I11.0 Hypertensive heart disease with heart failure (principal); I50.33 Acute on chronic diastolic (congestive) heart failure; I21.4 Non-ST elevation (NSTEMI) myocardial infarction; I25.10 Atherosclerotic heart disease of native coronary artery without angina pectoris; E11.9 Type 2 diabetes mellitus without complications; J44.9 Chronic obstructive pulmonary disease, unspecified; K74.60 Unspecified cirrhosis of liver; F17.210 Nicotine dependence, cigarettes, uncomplicated; I48.91 Unspecified atrial fibrillation; F32.A Depression, unspecified; F43.10 Post-traumatic stress disorder, unspecified; D73.5 Infarction of spleen; Z95.1 Presence of aortocoronary bypass graft; Z88.1 Allergy status to other antibiotic agents; Z88.0 Allergy status to penicillin; Z88.8 Allergy status to other drugs, medicaments and biological substances; Z88.5 Allergy status to narcotic agent; Z98.890 Other specified postprocedural states; Z90.49 Acquired absence of other specified parts of digestive tract; Z98.891 History of uterine scar from previous surgery; Z95.5 Presence of coronary angioplasty implant and graft; Z79.52 Long term (current) use of systemic steroids; Z79.899 Other long term (current) drug therapy; Z79.4 Long term (current) use of insulin; Z79.84 Long term (current) use of oral hypoglycemic drugs
CPT/HCPCS: 36415; 36416; 71045; 71275; 74177; 80048; 80053; 83690; 83880; 84484; 85025; 93005; 93306; 94640; 96374; 96375; 96376; J1815; J1940; J2270; J2405; J7626; Q0162; Q9967